=== PATIENT | male | born 1960 | race African-American/Black ===

== ENCOUNTER 2017-10-19 22:06 | Emergency (ER) | payer MEDICAID ==
[~2017-10-19] VITALS: Ht 182.9 cm; Wt 82.0 kg
[2017-10-20] MEDS ORDERED: ACETAMINOPHEN 325MG TABLET PO STA (07:25)
[2017-10-20 08:10] LABS: BASOPHILS % 0.7 % (0.0-2.0); EOSINOPHILS % 1.9 % (0.0-5.0); HEMATOCRIT. 38.4 % (42.0-52.0); LYMPHOCYTES % 44.3 % (20.0-50.0); MEAN CORPUSCULAR HEMOGLOBIN 30.8 pg (28.0-32.0); MEAN PLATELET VOLUME 9.4 fl (7.4-10.4); MONOCYTES % 14.6 % (2.0-8.0); NEUTROPHILS % 38.5 % (40.0-76.0); PLATELET 155 x1000/uL (130-400); RED BLOOD CELL COUNT 4.21 mill/uL (4.7-6.1); RED CELL DISTRIBUTION WIDTH 12.9 % (11.6-14.6)
[2017-10-20 08:52] LABS: CHLORIDE 105 mEq/L (98-107)
[2017-10-20 09:08] LABS: CLARITY URINE CLEAR (CLEAR); COLOR URINE YELLOW (YELLOW); KETONES URINE NEGATIVE (NEGATIVE); LEUKOCYTE ESTERASE URINE 1+ (NEGATIVE); NITRITE URINE NEGATIVE (NEGATIVE); OCCULT BLOOD URINE NEGATIVE (NEGATIVE); PH URINE 5.5 (4.5-8.0); PROTEIN URINE NEGATIVE (NEGATIVE); SPECIFIC GRAVITY URINE 1.016 (1.005-1.030); UROBILINOGEN URINE 0.2 E.U./dL (0.2-1.0)
[2017-10-20 09:15] LABS: CARBON DIOXIDE 24 mEq/L (21-32); ETHANOL BLOOD < 10 mg/dL
[2017-10-20 10:09] LABS: *AMPHETAMINES SCREEN URINE NEGATIVE (NEGATIVE); *BARBITURATES SCREEN URINE NEGATIVE (NEGATIVE); *BENZODIAZEPINES SCREEN URINE NEGATIVE (NEGATIVE); *COCAINE SCREEN URINE PRESUMTIVE POSITIVE (NEGATIVE); CANNABINOID URINE SCREEN PRESUMTIVE POSITIVE (NEGATIVE); METHADONE URINE SCREEN NEGATIVE (NEGATIVE); OPIATES URINE SCREEN NEGATIVE (NEGATIVE); PHENCYCLIDINE URINE SCREEN NEGATIVE (NEGATIVE)
[2017-10-20 16:02] VITALS: BP 130/70
== END 2017-10-20 17:08 ==
LOC: ER 22:26
DX: F31.9 Bipolar disorder, unspecified (principal); F17.200 Nicotine dependence, unspecified, uncomplicated; I10 Essential (primary) hypertension; M10.9 Gout, unspecified; R45.851 Suicidal ideations; F12.10 Cannabis abuse, uncomplicated; M54.5 Low back pain
CPT/HCPCS: 36415; 80053; 80305; 80307; 80329; 81001; 85025; 99285; G0482; Z7610

== ENCOUNTER 2019-02-13 09:54 | Inpatient (IN) | payer MEDICAID ==
[~2019-02-13] VITALS: Ht 172.7 cm; Wt 86.6 kg
[2019-02-13 10:40] LABS: BASOPHILS % 1.1 % (0.0-2.0); EOSINOPHILS % 0.8 % (0.0-5.0); HEMATOCRIT. 39.7 % (42.0-52.0); HEMOGLOBIN. 13.4 g/dL (14.0-18.0); LYMPHOCYTES % 33.1 % (20.0-50.0); MEAN CORPUSCULAR HEMOGLOBIN 30.5 pg (28.0-32.0); MEAN CORPUSCULAR VOLUME 90.1 fL (80.0-94.0); MEAN PLATELET VOLUME 8.7 fl (7.4-10.4); MONOCYTES % 14.5 % (2.0-8.0); NEUTROPHILS % 50.5 % (40.0-76.0); PLATELET 160 x1000/uL (130-400); RED CELL DISTRIBUTION WIDTH 14.2 % (11.6-14.6)
[2019-02-13 10:47] LABS: CHLORIDE 107 mEq/L (98-107)
[2019-02-13 10:52] LABS: INR 1.1; PROTHROMBIN TIME 11.5 sec (9.6-11.0)
[2019-02-13] MEDS ORDERED: ASPIRIN 81MG TABLET PO ONE (12:15)
[2019-02-13] MEDS ORDERED: IPRATROPIUM/ALBUTEROL 0.5-3(2.5)MG/3ML NEB INH PRN (12:30)
[2019-02-13] MEDS ORDERED: GUAIFENESIN 200MG/10ML SUGAR FREE UDC PO PRN (12:30)
[2019-02-13] MEDS ORDERED: MAGNESIUM/ALUMINUM HYDROXIDE/SIMETHICONE 30ML UDC PO PRN (12:30)
[2019-02-13] MEDS ORDERED: DOCUSATE SODIUM 100MG CAPSULE PO PRN (12:30)
[2019-02-13] MEDS ORDERED: NITROGLYCERIN 0.4MG TABLET SL SL PRN (12:30)
[2019-02-13] MEDS ORDERED: ACETAMINOPHEN 325MG TABLET PO PRN (12:30)
[2019-02-13] MEDS ORDERED: LORAZEPAM 2MG/ML CPJ IV PRN (12:30)
[2019-02-13] MEDS ORDERED: ONDANSETRON HCL 4MG/2ML INJ IV PRN (12:30)
[2019-02-13] MEDS ORDERED: NA PHOS,M-B/NA PHOS,DI-BA ENEMA 118ML PR PRN (12:30)
[2019-02-13] MEDS: AMLODIPINE 10MG TABLET PO SCH (12:53)
[2019-02-13] MEDS: ENOXAPARIN 40MG/0.4ML SYR SUBCUT SCH (12:54)
[2019-02-13] MEDS: CLONIDINE 0.1MG TABLET PO PRN (15:44)
[2019-02-13 16:45] VITALS: BP 185/110
[2019-02-13 16:58] VITALS: BP 185/110
[2019-02-13] MEDS ORDERED: HALOPERIDOL LACTATE 5MG/ML VIAL IM PRN (17:30)
[2019-02-13] MEDS ORDERED: SERT100T PO (17:31)
[2019-02-13] MEDS ORDERED: TRAZ-213 PO (17:31)
[2019-02-13] MEDS ORDERED: RISO02 PO (17:31)
[2019-02-13] MEDS ORDERED: MINOXIDIL 2.5MG TABLET PO NR ×2 (18:45→19:30)
[2019-02-13 20:00] VITALS: BP 159/91
[2019-02-13] MEDS: LISINOPRIL 20MG TABLET PO SCH (20:33)
[2019-02-13] MEDS: METOPROLOL TARTRATE 25MG TABLET PO SCH (20:34)
[2019-02-13] MEDS: FAMOTIDINE 20MG TABLET PO SCH (20:34)
[2019-02-13] MEDS ORDERED: ZOLPIDEM TARTRATE 5MG TABLET PO PRN (21:00)
[2019-02-13] MEDS: KETOROLAC 15MG/ML VIAL IV PRN (22:04)
[2019-02-14] VITALS (7 sets, daily range): BP systolic 147–189; BP diastolic 70–104
[2019-02-14] MEDS: CLONIDINE 0.1MG TABLET PO PRN (01:08)
[2019-02-14] MEDS: KETOROLAC 15MG/ML VIAL IV PRN (05:31)
[2019-02-14] MEDS: METOPROLOL TARTRATE 25MG TABLET PO SCH (09:00)
[2019-02-14] MEDS ORDERED: ASPIRIN 325MG EC TABLET PO SCH (09:00)
[2019-02-14] MEDS ORDERED: MINOXIDIL 2.5MG TABLET PO SCH (09:00)
[2019-02-14] MEDS: FAMOTIDINE 20MG TABLET PO SCH (10:58)
[2019-02-14] MEDS: AMLODIPINE 10MG TABLET PO SCH (10:58)
[2019-02-14] MEDS: LISINOPRIL 20MG TABLET PO SCH (10:59)
[2019-02-14] MEDS: ENOXAPARIN 40MG/0.4ML SYR SUBCUT SCH (12:30)
== END 2019-02-14 17:45 | disposition home or self-care (01) | DRG 203 ==
LOC: ER 09:54 → EDBEDREQ 12:23 → ENRESERV 14:20 → 8WST 17:09
PROVIDERS: ADMIT Internal Medicine; ATTEND Internal Medicine
DX: R07.89 Other chest pain (principal); F20.9 Schizophrenia, unspecified; I10 Essential (primary) hypertension; F31.9 Bipolar disorder, unspecified; F12.10 Cannabis abuse, uncomplicated; F17.210 Nicotine dependence, cigarettes, uncomplicated; Z91.14 Patient's other noncompliance with medication regimen; Z71.6 Tobacco abuse counseling; Z71.51 Drug abuse counseling and surveillance of drug abuser; Z79.899 Other long term (current) drug therapy; I69.354 Hemiplegia and hemiparesis following cerebral infarction affecting left non-dominant side
CPT/HCPCS: 36415; 70551; 71045; 80061; 82962; 83036; 83880; 84484; 93005; 93970; 96372; 99285; J1650; J1885; J2060

== ENCOUNTER 2019-02-26 07:34 | Inpatient (IN) | payer MEDICAID ==
[~2019-02-26] VITALS: Ht 185.4 cm; Wt 113.4 kg
[~2019-02-26 07:34] MED LIST: RISO02 PO; SERT100T PO; TRAZ-213 PO
[2019-02-26 09:03] LABS: BASOPHILS % 0.5 % (0.0-2.0); EOSINOPHILS % 0.1 % (0.0-5.0); HEMATOCRIT. 40.9 % (42.0-52.0); HEMOGLOBIN. 13.7 g/dL (14.0-18.0); LYMPHOCYTES % 12.7 % (20.0-50.0); MEAN CORPUSCULAR HEMOGLOBIN 30.1 pg (28.0-32.0); MEAN CORPUSCULAR VOLUME 89.8 fL (80.0-94.0); MEAN PLATELET VOLUME 9.2 fl (7.4-10.4); MONOCYTES % 11.4 % (2.0-8.0); NEUTROPHILS % 75.3 % (40.0-76.0); PLATELET 169 x1000/uL (130-400); RED BLOOD CELL COUNT 4.56 mill/uL (4.7-6.1); RED CELL DISTRIBUTION WIDTH 14.1 % (11.6-14.6)
[2019-02-26 09:09] LABS: CHLORIDE 106 mEq/L (98-107)
[2019-02-26 09:16] LABS: ETHANOL BLOOD < 10 mg/dL
[2019-02-26 09:38] LABS: CLARITY URINE TURBID (CLEAR); COLOR URINE YELLOW (YELLOW); KETONES URINE NEGATIVE (NEGATIVE); LEUKOCYTE ESTERASE URINE NEGATIVE (NEGATIVE); NITRITE URINE NEGATIVE (NEGATIVE); OCCULT BLOOD URINE NEGATIVE (NEGATIVE); PH URINE >=9.0 (4.5-8.0); PROTEIN URINE NEGATIVE (NEGATIVE); SPECIFIC GRAVITY URINE 1.016 (1.005-1.030)
[2019-02-26 09:53] LABS: *AMPHETAMINES SCREEN URINE NEGATIVE (NEGATIVE); *BARBITURATES SCREEN URINE NEGATIVE (NEGATIVE); *BENZODIAZEPINES SCREEN URINE NEGATIVE (NEGATIVE); *COCAINE SCREEN URINE PRESUMTIVE POSITIVE (NEGATIVE); METHADONE URINE SCREEN NEGATIVE (NEGATIVE); OPIATES URINE SCREEN NEGATIVE (NEGATIVE)
[2019-02-26 09:54] LABS: CANNABINOID URINE SCREEN PRESUMTIVE POSITIVE (NEGATIVE); PHENCYCLIDINE URINE SCREEN NEGATIVE (NEGATIVE)
[2019-02-26] MEDS ORDERED: OXYCODONE HCL/ACETAMINOPHEN 5/325MG TABLET PO ONE (10:15)
[2019-02-26 11:00] VITALS: BP 193/85
[2019-02-26 12:00] VITALS: BP 193/85
[2019-02-26] MEDS ORDERED: ACETAMINOPHEN 325MG TABLET PO PRN (13:15)
[2019-02-26] MEDS ORDERED: HYDROCODONE/ACETAMINOPHEN 5/325MG TABLET PO PRN (13:15)
[2019-02-26] MEDS ORDERED: ONDANSETRON HCL 4MG/2ML INJ IV PRN (13:15)
[2019-02-26] MEDS: AMLODIPINE 10MG TABLET PO SCH (13:54)
[2019-02-26] MEDS: ENOXAPARIN 40MG/0.4ML SYR SUBCUT SCH (14:00)
[2019-02-26] MEDS: CLONIDINE 0.1MG TABLET PO PRN ×2 (15:22→21:21)
[2019-02-26 15:28] LABS: T4 FREE 1.3 ng/dL (0.76-1.46)
[2019-02-26] MEDS ORDERED: AMLO5TAB4 PO (15:30)
[2019-02-26] MEDS ORDERED: LOSA25TA26 PO (15:31)
[2019-02-26 15:43] LABS: FOLIC ACID (FOLATE) SERUM 6.7 ng/mL (>5.38)
[2019-02-26] MEDS ORDERED: LORAZEPAM 2MG/ML CPJ IV NR (15:51)
[2019-02-26 16:00] VITALS: BP 188/95
[2019-02-26] MEDS: HYDROCODONE/ACETAMINOPHEN 10/325MG TABLET PO PRN ×2 (17:05→21:20)
[2019-02-26 20:00] VITALS: BP 181/95
[2019-02-26] MEDS: RISPERIDONE 0.25MG TABLET PO SCH (20:35)
[2019-02-26] MEDS: TRAZODONE HCL 100MG TABLET PO SCH (21:20)
[2019-02-27] VITALS: BP 137/77
[2019-02-27] MEDS: HYDROCODONE/ACETAMINOPHEN 10/325MG TABLET PO PRN ×4 (01:22→20:39)
[2019-02-27 04:00] VITALS: BP 133/75
[2019-02-27 06:15] LABS: HEMATOCRIT. 35.4 % (42.0-52.0); HEMOGLOBIN. 12.1 g/dL (14.0-18.0); MEAN CORPUSCULAR HEMOGLOBIN 30.6 pg (28.0-32.0); MEAN CORPUSCULAR VOLUME 89.3 fL (80.0-94.0); MEAN PLATELET VOLUME 9.3 fl (7.4-10.4); PLATELET 160 x1000/uL (130-400); RED BLOOD CELL COUNT 3.96 mill/uL (4.7-6.1); RED CELL DISTRIBUTION WIDTH 14.1 % (11.6-14.6)
[2019-02-27 06:40] LABS: CHLORIDE 105 mEq/L (98-107)
[2019-02-27 06:50] LABS: PHOSPHORUS 3.4 mg/dL (2.5-4.9)
[2019-02-27 06:51] LABS: LDL CHOLESTEROL 65 mg/dL (5-100)
[2019-02-27 06:52] LABS: HDL CHOLESTEROL 38 mg/dL (40-59)
[2019-02-27 08:00] VITALS: BP 150/83
[2019-02-27] MEDS ORDERED: LOSARTAN POTASSIUM 25 MG TABLET PO SCH (09:00)
[2019-02-27] MEDS: AMLODIPINE 10MG TABLET PO SCH (09:25)
[2019-02-27] MEDS: SERTRALINE HCL 100MG TABLET PO SCH (09:30)
[2019-02-27] MEDS: ENOXAPARIN 40MG/0.4ML SYR SUBCUT SCH (09:31)
[2019-02-27] MEDS: MAGNESIUM/ALUMINUM HYDROXIDE/SIMETHICONE 30ML UDC PO PRN (10:33)
[2019-02-27 12:00] VITALS: BP 166/84
[2019-02-27] MEDS ORDERED: PNEUMOCOCCAL 23-VAL P-SAC VAC 0.5 ML IM ONE (12:00)
[2019-02-27] MEDS: CLONIDINE 0.1MG TABLET PO PRN (13:36)
[2019-02-27] MEDS: DEXAMETHASONE 4MG/ML 1ML VIAL IV SCH ×2 (13:36→18:20)
[2019-02-27] MEDS ORDERED: MAGNESIUM CITRATE 300ML SOLUTION PO NR (14:00)
[2019-02-27] MEDS ORDERED: NA PHOS,M-B/NA PHOS,DI-BA ENEMA 118ML PR PRN (14:26)
[2019-02-27] MEDS: LACTULOSE 20G/30ML UDC PO SCH ×3 (14:29→20:40)
[2019-02-27] MEDS ORDERED: CYANOCOBALAMIN 1000MCG/ML VIAL IM SCH (15:00)
[2019-02-27] MEDS ORDERED: IPRATROPIUM/ALBUTEROL 0.5-3(2.5)MG/3ML NEB HHN PRN (15:15)
[2019-02-27] MEDS: NICOTINE 14MG PATCH TD SCH (15:26)
[2019-02-27 16:00] VITALS: BP 140/89
[2019-02-27 16:34] LABS: PLATELET ESTIMATE NORMAL
[2019-02-27] MEDS: DOCUSATE SODIUM 100MG CAPSULE PO SCH (17:00)
[2019-02-27 19:34] LABS: CLARITY URINE CLOUDY (CLEAR); COLOR URINE YELLOW (YELLOW); KETONES URINE NEGATIVE (NEGATIVE); LEUKOCYTE ESTERASE URINE NEGATIVE (NEGATIVE); NITRITE URINE NEGATIVE (NEGATIVE); OCCULT BLOOD URINE NEGATIVE (NEGATIVE); PH URINE 7.5 (4.5-8.0); PROTEIN URINE NEGATIVE (NEGATIVE); SPECIFIC GRAVITY URINE 1.014 (1.005-1.030)
[2019-02-27 20:00] VITALS: BP 167/87
[2019-02-27] MEDS: LOSARTAN POTASSIUM 50 MG TABLET PO SCH (20:39)
[2019-02-27] MEDS: AMLODIPINE 5MG TABLET PO SCH (20:39)
[2019-02-27] MEDS: TRAZODONE HCL 100MG TABLET PO SCH (20:40)
[2019-02-27] MEDS: POLYETHYLENE GLYCOL 3350 (17GM) 1 DOSE PACK PO SCH (20:40)
[2019-02-27] MEDS: RISPERIDONE 0.25MG TABLET PO SCH (20:40)
[2019-02-27 21:09] LABS: PROTHROMBIN TIME 10.7 sec (9.6-11.0)
[2019-02-28] VITALS: BP 150/80
[2019-02-28] MEDS: DEXAMETHASONE 4MG/ML 1ML VIAL IV SCH ×5 (00:03→23:09)
[2019-02-28 04:00] VITALS: BP 162/86
[2019-02-28 06:23] LABS: BASOPHILS % 0.2 % (0.0-2.0); HEMATOCRIT. 37.4 % (42.0-52.0); LYMPHOCYTES % 15.2 % (20.0-50.0); MEAN CORPUSCULAR HEMOGLOBIN 30.8 pg (28.0-32.0); MEAN CORPUSCULAR VOLUME 88.8 fL (80.0-94.0); MEAN PLATELET VOLUME 9.3 fl (7.4-10.4); MONOCYTES % 6.2 % (2.0-8.0); NEUTROPHILS % 78.4 % (40.0-76.0); PLATELET 177 x1000/uL (130-400); RED BLOOD CELL COUNT 4.21 mill/uL (4.7-6.1); RED CELL DISTRIBUTION WIDTH 13.5 % (11.6-14.6)
[2019-02-28] MEDS: HYDROCODONE/ACETAMINOPHEN 10/325MG TABLET PO PRN ×2 (06:29→16:08)
[2019-02-28 06:54] LABS: CHLORIDE 105 mEq/L (98-107)
[2019-02-28 08:00] VITALS: BP 175/90
[2019-02-28] MEDS: LOSARTAN POTASSIUM 50 MG TABLET PO SCH ×2 (08:44→20:41)
[2019-02-28] MEDS: DOCUSATE SODIUM 100MG CAPSULE PO SCH ×2 (08:44→17:44)
[2019-02-28] MEDS: SERTRALINE HCL 100MG TABLET PO SCH (08:44)
[2019-02-28] MEDS: AMLODIPINE 5MG TABLET PO SCH (08:44)
[2019-02-28] MEDS: BISACODYL 10MG SUPP PR SCH (08:45)
[2019-02-28] MEDS: NICOTINE 14MG PATCH TD SCH (08:45)
[2019-02-28 12:00] VITALS: BP 170/92
[2019-02-28] MEDS: CLONIDINE 0.1MG TABLET PO PRN (12:36)
[2019-02-28 16:00] VITALS: BP 168/83
[2019-02-28] MEDS: NIFEDIPINE XL 60MG TAB PO SCH (16:09)
[2019-02-28 20:00] VITALS: BP 171/91
[2019-02-28] MEDS: RISPERIDONE 0.25MG TABLET PO SCH (20:33)
[2019-02-28] MEDS: TRAZODONE HCL 100MG TABLET PO SCH (20:33)
[2019-02-28] MEDS: POLYETHYLENE GLYCOL 3350 (17GM) 1 DOSE PACK PO SCH (20:33)
[2019-03-01] VITALS (64 sets, daily range): BP systolic -13–210; BP diastolic -15–109
[2019-03-01] MEDS: DEXAMETHASONE 4MG/ML 1ML VIAL IV SCH ×4 (05:25→23:50)
[2019-03-01] MEDS ORDERED: THROMBIN (BOVINE) 5000 UNITS/VIAL TOP ONE (06:19)
[2019-03-01] MEDS ORDERED: LIDOCAINE HCL/EPINEPHRINE 1%-EPI 1:100,000 20 ML VIAL ONE ×2 (06:20→06:21)
[2019-03-01] MEDS ORDERED: BACITRACIN 50,000 UNITS/VIAL ONE (06:20)
[2019-03-01] MEDS ORDERED: NORMAL SALINE 0.9% 10 ML SYR ONE (06:25)
[2019-03-01] MEDS ORDERED: PROPOFOL 200MG/20ML VIAL IV ONE ×2 (06:37→07:49)
[2019-03-01] MEDS ORDERED: FENTANYL CITRATE/PF 50MCG/ML 2ML VIAL ONE (06:37)
[2019-03-01] MEDS ORDERED: MIDAZOLAM HCL 2 MG/2 ML VIAL ONE (06:37)
[2019-03-01] MEDS ORDERED: NEOSTIGMINE METHYLSULFATE 1MG/ML 10 ML VIAL ONE (06:37)
[2019-03-01] MEDS ORDERED: ROCURONIUM BROMIDE 10MG/ML VIAL 5ML IV ONE ×2 (06:37→07:34)
[2019-03-01] MEDS ORDERED: GLYCOPYRROLATE 0.2 MG/ML 2ML VIAL ONE (06:38)
[2019-03-01] MEDS ORDERED: DEXAMETHASONE 4MG/ML 1ML VIAL ONE (06:39)
[2019-03-01] MEDS ORDERED: EPHEDRINE SULFATE 50MG/ML VIAL ONE (06:39)
[2019-03-01] MEDS ORDERED: PHENYLEPHRINE HCL 10 MG/ML 1ML (IV VIAL) IV ONE (06:39)
[2019-03-01] MEDS ORDERED: CEFAZOLIN SODIUM 1000MG/VIAL ONE (06:39)
[2019-03-01] MEDS ORDERED: METOCLOPRAMIDE HCL 10MG/2ML VIAL ONE (06:39)
[2019-03-01] MEDS ORDERED: LIDOCAINE HCL/PF 1% 10 MG/ML 5ML VIAL ONE (06:39)
[2019-03-01] MEDS ORDERED: SODIUM CHLORIDE 0.9% 10ML VIAL ONE (06:39)
[2019-03-01] MEDS ORDERED: ONDANSETRON HCL 4MG/2ML INJ ONE (06:39)
[2019-03-01] MEDS ORDERED: SUCCINYLCHOLINE CHLORIDE 200MG/10ML IV ONE (06:39)
[2019-03-01] MEDS ORDERED: FENTANYL CITRATE/PF 50MCG/ML 5ML VIAL ONE (07:33)
[2019-03-01] MEDS ORDERED: HYDRALAZINE 20MG/ML VIAL ONE ×2 (07:42→08:56)
[2019-03-01] MEDS ORDERED: LABETALOL HCL 5MG/ML VIAL 20ML IV ONE (08:45)
[2019-03-01] MEDS: SERTRALINE HCL 100MG TABLET PO SCH (09:00)
[2019-03-01] MEDS: LOSARTAN POTASSIUM 50 MG TABLET PO SCH ×2 (09:00→20:12)
[2019-03-01] MEDS: BISACODYL 10MG SUPP PR SCH (09:00)
[2019-03-01] MEDS: DOCUSATE SODIUM 100MG CAPSULE PO SCH ×2 (09:00→16:30)
[2019-03-01] MEDS: NIFEDIPINE XL 60MG TAB PO SCH (09:00)
[2019-03-01] MEDS ORDERED: DIPHENHYDRAMINE INJ IV PRN (09:30)
[2019-03-01] MEDS ORDERED: ONDANSETRON INJ IV PRN (09:30)
[2019-03-01] MEDS ORDERED: NALOXONE INJ IV PRN (09:30)
[2019-03-01] MEDS: MORPHINE SULFATE 2 MG/ML CPJ (NOT FOR IM USE) IV PRN ×2 (09:31→23:56)
[2019-03-01] MEDS: DEXT 5%/LACTATED RINGERS 1,000 ML IV SCH ×2 (09:36→17:50)
[2019-03-01] MEDS: NICARDIPINE 100 MG in SODIUM CHLORIDE 0.9% 60 ML IV PRN ×2 (09:49→18:33)
[2019-03-01] MEDS ORDERED: HYDROMORPHONE PCA 10MG/50ML IV PRN (10:00)
[2019-03-01] MEDS: NICOTINE 14MG PATCH TD SCH (12:22)
[2019-03-01] MEDS: CEFAZOLIN 1000MG PREMIX 50 ML IV SCH ×2 (13:59→21:46)
[2019-03-01] MEDS ORDERED: CEFAZOLIN SODIUM 1000MG/VIAL IV SCH (14:00)
[2019-03-01] MEDS: TRAZODONE HCL 100MG TABLET PO SCH (20:12)
[2019-03-01] MEDS: RISPERIDONE 0.25MG TABLET PO SCH (20:12)
[2019-03-01] MEDS: POLYETHYLENE GLYCOL 3350 (17GM) 1 DOSE PACK PO SCH (20:12)
[2019-03-01] MEDS: CLONIDINE 0.1MG TABLET PO PRN (21:54)
[2019-03-02] VITALS (93 sets, daily range): BP systolic 89–183; BP diastolic 41–128
[2019-03-02] MEDS: DEXT 5%/LACTATED RINGERS 1,000 ML IV SCH ×2 (00:37→03:05)
[2019-03-02] MEDS: HYDROCODONE/ACETAMINOPHEN 10/325MG TABLET PO PRN ×3 (00:37→21:24)
[2019-03-02] MEDS: NICARDIPINE 100 MG in SODIUM CHLORIDE 0.9% 60 ML IV PRN ×2 (01:56→12:35)
[2019-03-02] MEDS: DEXAMETHASONE 4MG/ML 1ML VIAL IV SCH ×2 (05:16→12:30)
[2019-03-02] MEDS: CEFAZOLIN 1000MG PREMIX 50 ML IV SCH (05:16)
[2019-03-02 05:29] LABS: HEMATOCRIT. 40.6 % (42.0-52.0); HEMOGLOBIN. 14.1 g/dL (14.0-18.0); MEAN CORPUSCULAR HEMOGLOBIN 30.6 pg (28.0-32.0); MEAN CORPUSCULAR VOLUME 88.4 fL (80.0-94.0); MEAN PLATELET VOLUME 8.8 fl (7.4-10.4); PLATELET 203 x1000/uL (130-400); RED CELL DISTRIBUTION WIDTH 13.9 % (11.6-14.6)
[2019-03-02 05:37] LABS: CHLORIDE 104 mEq/L (98-107)
[2019-03-02] MEDS ORDERED: LORAZEPAM 1MG TABLET PO SCH (08:30)
[2019-03-02] MEDS: NICOTINE 14MG PATCH TD SCH (08:43)
[2019-03-02] MEDS: LOSARTAN POTASSIUM 50 MG TABLET PO SCH ×2 (08:43→20:55)
[2019-03-02] MEDS: SERTRALINE HCL 100MG TABLET PO SCH (08:43)
[2019-03-02] MEDS: DOCUSATE SODIUM 100MG CAPSULE PO SCH ×2 (08:45→18:07)
[2019-03-02] MEDS: BISACODYL 10MG SUPP PR SCH (09:00)
[2019-03-02 10:25] LABS: PLATELET ESTIMATE NORMAL
[2019-03-02] MEDS: HYDRALAZINE HCL 25MG TABLET PO SCH ×2 (12:30→21:24)
[2019-03-02] MEDS: MAGNESIUM/ALUMINUM HYDROXIDE/SIMETHICONE 30ML UDC PO PRN (15:05)
[2019-03-02] MEDS: RISPERIDONE 0.25MG TABLET PO SCH (20:55)
[2019-03-02] MEDS: TRAZODONE HCL 100MG TABLET PO SCH (20:55)
[2019-03-02] MEDS: POLYETHYLENE GLYCOL 3350 (17GM) 1 DOSE PACK PO SCH (20:55)
[2019-03-03] VITALS (88 sets, daily range): BP systolic 99–197; BP diastolic 53–151
[2019-03-03 05:53] LABS: CHLORIDE 103 mEq/L (98-107)
[2019-03-03 06:03] LABS: BASOPHILS % 0.1 % (0.0-2.0); HEMATOCRIT. 40.9 % (42.0-52.0); MEAN CORPUSCULAR HEMOGLOBIN 30.5 pg (28.0-32.0); MEAN CORPUSCULAR VOLUME 88.8 fL (80.0-94.0); MEAN PLATELET VOLUME 8.8 fl (7.4-10.4); NEUTROPHILS % 76.9 % (40.0-76.0); PLATELET 202 x1000/uL (130-400); RED BLOOD CELL COUNT 4.61 mill/uL (4.7-6.1); RED CELL DISTRIBUTION WIDTH 13.9 % (11.6-14.6)
[2019-03-03] MEDS: HYDRALAZINE HCL 25MG TABLET PO SCH ×2 (06:05→13:52)
[2019-03-03] MEDS: NICOTINE 14MG PATCH TD SCH (08:29)
[2019-03-03] MEDS: SERTRALINE HCL 100MG TABLET PO SCH (08:29)
[2019-03-03] MEDS: LOSARTAN POTASSIUM 50 MG TABLET PO SCH ×2 (08:30→20:16)
[2019-03-03] MEDS: DOCUSATE SODIUM 100MG CAPSULE PO SCH ×2 (08:30→17:01)
[2019-03-03] MEDS: HYDROCODONE/ACETAMINOPHEN 10/325MG TABLET PO PRN ×2 (08:30→13:58)
[2019-03-03] MEDS: BISACODYL 10MG SUPP PR SCH ×2 (08:31→10:48)
[2019-03-03] MEDS ORDERED: AMLODIPINE 10MG TABLET PO SCH (09:00)
[2019-03-03] MEDS: CLONIDINE 0.1MG TABLET PO PRN ×2 (15:32→21:52)
[2019-03-03] MEDS ORDERED: HYDRALAZINE 20MG/ML VIAL IV PRN (17:00)
[2019-03-03] MEDS ORDERED: HYDRALAZINE HCL 25MG TABLET PO NR (17:45)
[2019-03-03] MEDS: POLYETHYLENE GLYCOL 3350 (17GM) 1 DOSE PACK PO SCH (20:16)
[2019-03-03] MEDS: RISPERIDONE 0.25MG TABLET PO SCH (20:16)
[2019-03-03] MEDS: TRAZODONE HCL 100MG TABLET PO SCH (20:16)
[2019-03-03] MEDS: AMLODIPINE 5MG TABLET PO SCH (20:16)
[2019-03-03] MEDS: MORPHINE SULFATE 2 MG/ML CPJ (NOT FOR IM USE) IV PRN (21:35)
[2019-03-03] MEDS: HYDRALAZINE HCL 50MG TABLET PO SCH (21:35)
[2019-03-03] MEDS ORDERED: HYDRALAZINE 20MG/ML VIAL IV NR (22:45)
[2019-03-04] VITALS (7 sets, daily range): BP systolic 108–139; BP diastolic 50–67
[2019-03-04] MEDS: MORPHINE SULFATE 2 MG/ML CPJ (NOT FOR IM USE) IV PRN ×2 (03:48→13:29)
[2019-03-04] MEDS: HYDRALAZINE HCL 50MG TABLET PO SCH ×3 (05:25→21:17)
[2019-03-04 06:27] LABS: HEMATOCRIT. 39.9 % (42.0-52.0); HEMOGLOBIN. 13.8 g/dL (14.0-18.0); MEAN CORPUSCULAR HEMOGLOBIN 30.5 pg (28.0-32.0); MEAN CORPUSCULAR VOLUME 87.8 fL (80.0-94.0); MEAN PLATELET VOLUME 8.6 fl (7.4-10.4); PLATELET 200 x1000/uL (130-400); RED BLOOD CELL COUNT 4.54 mill/uL (4.7-6.1); RED CELL DISTRIBUTION WIDTH 14.3 % (11.6-14.6)
[2019-03-04 06:31] LABS: CHLORIDE 104 mEq/L (98-107)
[2019-03-04 07:56] LABS: PLATELET ESTIMATE NORMAL
[2019-03-04] MEDS: LOSARTAN POTASSIUM 50 MG TABLET PO SCH ×2 (09:20→21:17)
[2019-03-04] MEDS: AMLODIPINE 10MG TABLET PO SCH (09:21)
[2019-03-04] MEDS: SERTRALINE HCL 100MG TABLET PO SCH (09:21)
[2019-03-04] MEDS: NICOTINE 14MG PATCH TD SCH (09:23)
[2019-03-04] MEDS: BISACODYL 10MG SUPP PR SCH (09:31)
[2019-03-04] MEDS: DOCUSATE SODIUM 100MG CAPSULE PO SCH ×2 (09:32→16:55)
[2019-03-04] MEDS ORDERED: ERGOCALCIFEROL 50000UNITS CAPSULE PO SCH (14:00)
[2019-03-04] MEDS: HYDROCODONE/ACETAMINOPHEN 5/325MG TABLET PO PRN (18:58)
[2019-03-04] MEDS: POLYETHYLENE GLYCOL 3350 (17GM) 1 DOSE PACK PO SCH (21:00)
[2019-03-04] MEDS: AMLODIPINE 5MG TABLET PO SCH (21:17)
[2019-03-04] MEDS: RISPERIDONE 0.25MG TABLET PO SCH (21:17)
[2019-03-04] MEDS: TRAZODONE HCL 100MG TABLET PO SCH (21:17)
[2019-03-05] VITALS: BP 142/82
[2019-03-05] MEDS: HYDROCODONE/ACETAMINOPHEN 5/325MG TABLET PO PRN ×2 (02:29→08:48)
[2019-03-05 04:00] VITALS: BP 144/73
[2019-03-05] MEDS: HYDRALAZINE HCL 50MG TABLET PO SCH ×3 (05:35→19:52)
[2019-03-05] MEDS: MORPHINE SULFATE 2 MG/ML CPJ (NOT FOR IM USE) IV PRN ×4 (05:36→23:52)
[2019-03-05 06:51] LABS: HEMATOCRIT. 40.3 % (42.0-52.0); HEMOGLOBIN. 13.6 g/dL (14.0-18.0); MEAN CORPUSCULAR HEMOGLOBIN 29.9 pg (28.0-32.0); MEAN CORPUSCULAR VOLUME 88.8 fL (80.0-94.0); MEAN PLATELET VOLUME 8.6 fl (7.4-10.4); PLATELET 162 x1000/uL (130-400); RED BLOOD CELL COUNT 4.54 mill/uL (4.7-6.1); RED CELL DISTRIBUTION WIDTH 13.7 % (11.6-14.6)
[2019-03-05 06:55] LABS: CHLORIDE 105 mEq/L (98-107)
[2019-03-05 08:00] VITALS: BP 147/73
[2019-03-05] MEDS: AMLODIPINE 10MG TABLET PO SCH (08:40)
[2019-03-05] MEDS: DOCUSATE SODIUM 100MG CAPSULE PO SCH ×3 (08:40→17:00)
[2019-03-05] MEDS: LOSARTAN POTASSIUM 50 MG TABLET PO SCH ×2 (08:40→19:53)
[2019-03-05] MEDS: SERTRALINE HCL 100MG TABLET PO SCH (08:40)
[2019-03-05] MEDS: NICOTINE 14MG PATCH TD SCH (08:42)
[2019-03-05] MEDS: BISACODYL 10MG SUPP PR SCH (08:42)
[2019-03-05 12:00] VITALS: BP 168/93
[2019-03-05 16:00] VITALS: BP 127/65
[2019-03-05 16:10] LABS: PLATELET ESTIMATE NORMAL
[2019-03-05] MEDS: RISPERIDONE 0.25MG TABLET PO SCH (19:52)
[2019-03-05] MEDS: AMLODIPINE 5MG TABLET PO SCH (19:52)
[2019-03-05] MEDS: POLYETHYLENE GLYCOL 3350 (17GM) 1 DOSE PACK PO SCH ×2 (19:53→20:13)
[2019-03-05] MEDS: TRAZODONE HCL 100MG TABLET PO SCH (19:53)
[2019-03-05 20:00] VITALS: BP 136/64
[2019-03-06] VITALS (7 sets, daily range): BP systolic 129–158; BP diastolic 65–88
[2019-03-06] MEDS: MORPHINE SULFATE 2 MG/ML CPJ (NOT FOR IM USE) IV PRN (03:51)
[2019-03-06] MEDS: HYDRALAZINE HCL 50MG TABLET PO SCH ×3 (05:54→20:28)
[2019-03-06 06:36] LABS: HEMATOCRIT. 40.7 % (42.0-52.0); MEAN CORPUSCULAR HEMOGLOBIN 30.1 pg (28.0-32.0); MEAN CORPUSCULAR VOLUME 87.7 fL (80.0-94.0); MEAN PLATELET VOLUME 8.3 fl (7.4-10.4); PLATELET 182 x1000/uL (130-400); RED BLOOD CELL COUNT 4.64 mill/uL (4.7-6.1); RED CELL DISTRIBUTION WIDTH 13.9 % (11.6-14.6)
[2019-03-06 07:31] LABS: CHLORIDE 105 mEq/L (98-107)
[2019-03-06 07:36] LABS: PLATELET ESTIMATE NORMAL
[2019-03-06] MEDS: HYDROCODONE/ACETAMINOPHEN 5/325MG TABLET PO PRN ×3 (08:09→20:17)
[2019-03-06] MEDS: NICOTINE 14MG PATCH TD SCH (08:10)
[2019-03-06] MEDS: AMLODIPINE 10MG TABLET PO SCH (08:10)
[2019-03-06] MEDS: SERTRALINE HCL 100MG TABLET PO SCH (08:10)
[2019-03-06] MEDS: DOCUSATE SODIUM 100MG CAPSULE PO SCH ×2 (08:10→17:23)
[2019-03-06] MEDS: BISACODYL 10MG SUPP PR SCH (08:45)
[2019-03-06] MEDS: LOSARTAN POTASSIUM 50 MG TABLET PO SCH ×2 (13:58→20:28)
[2019-03-06] MEDS: RISPERIDONE 0.25MG TABLET PO SCH (20:28)
[2019-03-06] MEDS: TRAZODONE HCL 100MG TABLET PO SCH (20:28)
[2019-03-06] MEDS: AMLODIPINE 5MG TABLET PO SCH (20:28)
[2019-03-06] MEDS: POLYETHYLENE GLYCOL 3350 (17GM) 1 DOSE PACK PO SCH (20:29)
[2019-03-07] VITALS: BP 138/75
[2019-03-07] MEDS: HYDROCODONE/ACETAMINOPHEN 5/325MG TABLET PO PRN ×4 (00:33→22:36)
[2019-03-07] MEDS: DIPHENHYDRAMINE 25MG CAPSULE PO PRN (01:02)
[2019-03-07 04:00] VITALS: BP 129/67
[2019-03-07] MEDS: HYDRALAZINE HCL 50MG TABLET PO SCH ×4 (05:15→20:25)
[2019-03-07 06:24] LABS: HEMATOCRIT. 41.5 % (42.0-52.0); HEMOGLOBIN. 14.1 g/dL (14.0-18.0); MEAN CORPUSCULAR HEMOGLOBIN 30.1 pg (28.0-32.0); MEAN CORPUSCULAR VOLUME 88.6 fL (80.0-94.0); MEAN PLATELET VOLUME 8.7 fl (7.4-10.4); PLATELET 185 x1000/uL (130-400); RED BLOOD CELL COUNT 4.68 mill/uL (4.7-6.1); RED CELL DISTRIBUTION WIDTH 14.2 % (11.6-14.6)
[2019-03-07 06:31] LABS: CHLORIDE 105 mEq/L (98-107)
[2019-03-07 08:00] VITALS: BP 140/73
[2019-03-07] MEDS: SERTRALINE HCL 100MG TABLET PO SCH (08:55)
[2019-03-07] MEDS: LOSARTAN POTASSIUM 50 MG TABLET PO SCH ×2 (08:55→20:25)
[2019-03-07] MEDS: AMLODIPINE 10MG TABLET PO SCH (08:56)
[2019-03-07] MEDS: DOCUSATE SODIUM 100MG CAPSULE PO SCH ×2 (08:56→18:41)
[2019-03-07] MEDS: NICOTINE 14MG PATCH TD SCH ×2 (09:00→12:23)
[2019-03-07] MEDS: BISACODYL 10MG SUPP PR SCH (09:00)
[2019-03-07 09:35] LABS: PLATELET ESTIMATE NORMAL
[2019-03-07 12:00] VITALS: BP 95/56
[2019-03-07 16:00] VITALS: BP 134/69
[2019-03-07 20:00] VITALS: BP 134/61
[2019-03-07] MEDS: RISPERIDONE 0.25MG TABLET PO SCH (20:24)
[2019-03-07] MEDS: TRAZODONE HCL 100MG TABLET PO SCH (20:24)
[2019-03-07] MEDS: AMLODIPINE 5MG TABLET PO SCH (20:25)
[2019-03-07] MEDS: POLYETHYLENE GLYCOL 3350 (17GM) 1 DOSE PACK PO SCH (20:33)
[2019-03-08] VITALS: BP 130/78
[2019-03-08] MEDS: HYDROCODONE/ACETAMINOPHEN 5/325MG TABLET PO PRN (03:06)
[2019-03-08] MEDS: DIPHENHYDRAMINE 25MG CAPSULE PO PRN (03:06)
[2019-03-08 04:00] VITALS: BP 129/72
[2019-03-08] MEDS: HYDRALAZINE HCL 50MG TABLET PO SCH ×2 (05:23→13:35)
[2019-03-08 08:00] VITALS: BP 120/71
[2019-03-08] MEDS: BISACODYL 10MG SUPP PR SCH (09:00)
[2019-03-08] MEDS: NICOTINE 14MG PATCH TD SCH (09:00)
[2019-03-08] MEDS: LOSARTAN POTASSIUM 50 MG TABLET PO SCH (09:33)
[2019-03-08] MEDS: AMLODIPINE 10MG TABLET PO SCH (09:33)
[2019-03-08] MEDS: SERTRALINE HCL 100MG TABLET PO SCH (09:33)
[2019-03-08] MEDS: DOCUSATE SODIUM 100MG CAPSULE PO SCH (09:33)
[2019-03-08 12:00] VITALS: BP 138/69
[2019-03-08 16:23] VITALS: BP 140/72
[2019-03-08 17:02] VITALS: BP 114/70
[2019-03-11 04:12] LABS: 25-HYDROXY VITAMIN D3 7.9 ng/mL (.)
[2019-03-12] MEDS ORDERED: CYANOCOBALAMIN 1000MCG/ML VIAL IM SCH (09:00)
== END 2019-03-08 18:13 | disposition home health service (06) | DRG 321 ==
LOC: ER 07:34 → 5WST 10:17 → ENRESERV 10:40 → MICUSO 03-01 09:08 → 7WST 03-03 23:20
PROVIDERS: ADMIT Family Medicine Adult Medicine; ATTEND Family Medicine Adult Medicine
PROC: 0RG10A0 Fusion of Cervical Vertebral Joint with Interbody Fusion Device, Anterior Approach, Anterior Column, Open Approach (ICD-10-PCS; principal; 2019-03-01)
PROC: 0RT30ZZ Resection of Cervical Vertebral Disc, Open Approach (ICD-10-PCS; 2019-03-01)
PROC: 4A00X4Z Measurement of Central Nervous Electrical Activity, External Approach (ICD-10-PCS; 2019-03-01)
PROC: 4A11X4G Monitoring of Peripheral Nervous Electrical Activity, Intraoperative, External Approach (ICD-10-PCS; 2019-03-01)
PROC: 01N10ZZ Release Cervical Nerve, Open Approach (ICD-10-PCS; 2019-03-01)
DX: M48.02 Spinal stenosis, cervical region (principal); G82.50 Quadriplegia, unspecified; M47.12 Other spondylosis with myelopathy, cervical region; F20.9 Schizophrenia, unspecified; M48.04 Spinal stenosis, thoracic region; G95.29 Other cord compression; K59.2 Neurogenic bowel, not elsewhere classified; N31.9 Neuromuscular dysfunction of bladder, unspecified; S14.109A Unspecified injury at unspecified level of cervical spinal cord, initial encounter; D64.9 Anemia, unspecified; F12.10 Cannabis abuse, uncomplicated; F17.210 Nicotine dependence, cigarettes, uncomplicated; F14.10 Cocaine abuse, uncomplicated; F43.10 Post-traumatic stress disorder, unspecified; G40.909 Epilepsy, unspecified, not intractable, without status epilepticus; F32.9 Major depressive disorder, single episode, unspecified; I16.0 Hypertensive urgency; E87.6 Hypokalemia; M48.061 Spinal stenosis, lumbar region without neurogenic claudication; I10 Essential (primary) hypertension; K59.00 Constipation, unspecified; M06.9 Rheumatoid arthritis, unspecified; M10.9 Gout, unspecified; F41.9 Anxiety disorder, unspecified; M06.30 Rheumatoid nodule, unspecified site; I69.354 Hemiplegia and hemiparesis following cerebral infarction affecting left non-dominant side; Z82.49 Family history of ischemic heart disease and other diseases of the circulatory system; Z71.6 Tobacco abuse counseling; Z91.19 Patient's noncompliance with other medical treatment and regimen
CPT/HCPCS: 36415; 70544; 70553; 71045; 72040; 72141; 72146; 72148; 76000; 80048; 80061; 80305; 80320; 82306; 82607; 82746; 83036; 83735; 83880; 84100; 84439; 84443; 84481; 88304; 88311; 90732; 92610; 93005; 93306; 93880; 93970; 95925; 95926; 95928; 95929; 97110; 97116; 97162; 97164; 97166; 97168; 97530; 97535; 99285; A6261; C1713; J0330; J0360; J0690; J1100; J1200; J1650; J2060; J2250; J2270; J2370; J2405; J2704; J2710; J2765; J3010; J3420; J3490; J7050; J7121; L0172; Q0163; G0480

== ENCOUNTER 2019-03-17 01:07 | Inpatient (IN) | payer MEDICAID, OTHER ==
[~2019-03-17] VITALS: Ht 185.4 cm; Wt 99.8 kg
[2019-03-17] VITALS (80 sets, daily range): BP systolic 80–175; BP diastolic 53–114
[~2019-03-17 01:07] MED LIST changes: +AMLO5TAB4 PO; +LOSA25TA26 PO
[2019-03-17] MEDS ORDERED: LORAZEPAM 2MG/ML CPJ ONE (01:22)
[2019-03-17] MEDS ORDERED: ATROPINE SULFATE 1MG/10ML SYR ONE (01:28)
[2019-03-17] MEDS ORDERED: ETOMIDATE 2MG/ML 10ML VIAL IV ONE ×2 (01:28→01:30)
[2019-03-17] MEDS ORDERED: EPINEPHRINE 0.1MG/ML (1:10,000) 10ML SYR ONE (01:28)
[2019-03-17] MEDS ORDERED: SUCCINYLCHOLINE CHLORIDE 200MG/10ML IV ONE ×2 (01:28→01:30)
[2019-03-17] MEDS ORDERED: LORAZEPAM 2MG/ML CPJ IV ONE (01:30)
[2019-03-17] MEDS ORDERED: LEVETIRACETAM 250 MG in SODIUM CHLORIDE 0.9% 100 ML IV SCH (01:30)
[2019-03-17] MEDS ORDERED: LABETALOL 5MG/ML SYR 20 MG/4 ML SYRINGE IV ONE (01:30)
[2019-03-17] MEDS ORDERED: LEVETIRACETAM 500MG PREMIX 100 ML IV ONE (01:30)
[2019-03-17 01:48] LABS: BASOPHILS % 0.7 % (0.0-2.0); EOSINOPHILS % 0.4 % (0.0-5.0); HEMATOCRIT. 39.9 % (42.0-52.0); HEMOGLOBIN. 13.5 g/dL (14.0-18.0); LYMPHOCYTES % 13.9 % (20.0-50.0); MEAN CORPUSCULAR HEMOGLOBIN 30.3 pg (28.0-32.0); MEAN CORPUSCULAR VOLUME 89.3 fL (80.0-94.0); MEAN PLATELET VOLUME 8.4 fl (7.4-10.4); PLATELET 224 x1000/uL (130-400); RED BLOOD CELL COUNT 4.46 mill/uL (4.7-6.1); RED CELL DISTRIBUTION WIDTH 13.8 % (11.6-14.6)
[2019-03-17 01:54] LABS: CHLORIDE 104 mEq/L (98-107)
[2019-03-17 01:58] LABS: ETHANOL BLOOD < 10 mg/dL
[2019-03-17] MEDS ORDERED: PROPOFOL 10MG/ML 100ML 100 ML IV SCH (02:00)
[2019-03-17 02:12] LABS: BG BASE EXCESS 0.1 mmol/L (-2.0-2.0); BG CARBOXYHEMOGLOBIN 2.3 % (0.5-1.5); BG DEOXYHEMOGLOBIN 0.6 % (0.0-5.0); BG FRACTION INSPIRED OXYGEN 100; BG METHEMOGLOBIN 0.2 % (0.0-1.5); BG OXYGEN SATURATION 99.4 % (92.0-98.5); BG OXYHEMOGLOBIN 96.9 % (94.0-97.0); BG PCO2 53.2 mmHg (35.0-45.0); BG PH 7.324 (7.350-7.450); BG PO2 257.7 mmHg (75.0-100.0); BG SAMPLE SITE RIGHT RADIAL; BG TIDAL VOLUME(mL) 550 mL; BG TOTAL HEMOGLOBIN 13.6 g/dL (12.0-18.0); BG VENT MODE VENT - A/C; BG VENT RATE 16 set
[2019-03-17] MEDS ORDERED: LORAZEPAM 2MG/ML CPJ IV PRN (05:30)
[2019-03-17] MEDS: SODIUM CHLORIDE 0.9% 1,000 ML IV SCH (05:53)
[2019-03-17] MEDS: PROPOFOL 10MG/ML 100ML 100 ML IV PRN ×7 (06:03→23:18)
[2019-03-17 07:56] LABS: BG BASE EXCESS 5.6 mmol/L (-2.0-2.0); BG CARBOXYHEMOGLOBIN 0.6 % (0.5-1.5); BG DEOXYHEMOGLOBIN 0.5 % (0.0-5.0); BG HCO3 ACT 28.8 mmol/L (22.0-26.0); BG METHEMOGLOBIN 0.3 % (0.0-1.5); BG OXYGEN SATURATION 99.5 % (92.0-98.5); BG OXYHEMOGLOBIN 98.6 % (94.0-97.0); BG PCO2 37.3 mmHg (35.0-45.0); BG PH 7.506 (7.350-7.450); BG PO2 262.7 mmHg (75.0-100.0); BG SAMPLE SITE RIGHT BRACHIAL; BG TIDAL VOLUME(mL) 550 mL; BG TOTAL HEMOGLOBIN 13.2 g/dL (12.0-18.0); BG VENT MODE VENT - A/C
[2019-03-17 10:03] LABS: CREATINE KINASE MB FRACTION 3.5 ng/mL (0.5-3.6)
[2019-03-17] MEDS ORDERED: DEXTROSE 50% WATER 50ML SYRINGE IV PRN (10:15)
[2019-03-17] MEDS ORDERED: ONDANSETRON HCL 4MG/2ML INJ IV PRN (10:15)
[2019-03-17] MEDS ORDERED: ACETAMINOPHEN 650MG SUPP PR PRN ×2 (10:15→11:00)
[2019-03-17 11:27] LABS: INR 1.1; PROTHROMBIN TIME 11.6 sec (9.6-11.0)
[2019-03-17] MEDS: BLOOD SUGAR DIAGNOSTIC STRIP TEST SCH ×3 (11:30→21:22)
[2019-03-17] MEDS: LEVETIRACETAM 500 MG in SODIUM CHLORIDE 0.9% 100 ML IV SCH ×2 (11:57→20:24)
[2019-03-17] MEDS: INSULIN LISPRO 100 UNITS/ML SUBCUT SCH ×3 (12:00→21:00)
[2019-03-17 12:43] LABS: TOTAL IRON BINDING CAPACITY 243 ug/dL (250-450)
[2019-03-17] MEDS ORDERED: MIDAZOLAM HCL 5 MG/5 ML VIAL ONE (13:04)
[2019-03-17] MEDS ORDERED: FENTANYL CITRATE/PF 50MCG/ML 2ML VIAL ONE (13:05)
[2019-03-17] MEDS: ALBUTEROL (0.083%) 2.5MG/3ML NEB HHN SCH ×2 (13:25→19:45)
[2019-03-17] MEDS ORDERED: SIMETHICONE 40 MG/0.6 ML 30ML ONE (13:25)
[2019-03-17] MEDS ORDERED: BACTERIOSTATIC SODIUM CHLORIDE 0.9% 30ML VIAL IJ ONE (13:25)
[2019-03-17 14:34] LABS: BG BASE EXCESS 2.6 mmol/L (-2.0-2.0); BG CARBOXYHEMOGLOBIN 0.4 % (0.5-1.5); BG DEOXYHEMOGLOBIN 1.5 % (0.0-5.0); BG FRACTION INSPIRED OXYGEN 50; BG METHEMOGLOBIN 0.2 % (0.0-1.5); BG OXYGEN SATURATION 98.5 % (92.0-98.5); BG OXYHEMOGLOBIN 97.9 % (94.0-97.0); BG PH 7.477 (7.350-7.450); BG PO2 122.1 mmHg (75.0-100.0); BG SAMPLE SITE LEFT BRACHIAL; BG TIDAL VOLUME(mL) 550 mL; BG TOTAL HEMOGLOBIN 12.7 g/dL (12.0-18.0); BG VENT MODE VENT - A/C; BG VENT RATE 16 set
[2019-03-17] MEDS ORDERED: FENTANYL CITRATE/PF 50MCG/ML 2ML VIAL IV ONE (14:36)
[2019-03-17] MEDS ORDERED: MIDAZOLAM HCL 2 MG/2 ML VIAL IV PRN (14:39)
[2019-03-17 15:21] LABS: HEMATOCRIT 36.6 % (42.0-52.0); HEMOGLOBIN 12.5 g/dL (14.0-18.0)
[2019-03-17 15:35] LABS: CREATINE KINASE MB FRACTION 1.7 ng/mL (0.5-3.6)
[2019-03-17] MEDS: PANTOPRAZOLE SODIUM 40 MG/VIAL IV SCH ×2 (16:33→20:24)
[2019-03-17 16:36] LABS: CLARITY URINE CLEAR (CLEAR); COLOR URINE YELLOW (YELLOW); KETONES URINE NEGATIVE (NEGATIVE); LEUKOCYTE ESTERASE URINE NEGATIVE (NEGATIVE); NITRITE URINE NEGATIVE (NEGATIVE); OCCULT BLOOD URINE NEGATIVE (NEGATIVE); PH URINE 6.5 (4.5-8.0); PROTEIN URINE NEGATIVE (NEGATIVE); SPECIFIC GRAVITY URINE 1.025 (1.005-1.030)
[2019-03-17 16:48] LABS: *AMPHETAMINES SCREEN URINE NEGATIVE (NEGATIVE); *BARBITURATES SCREEN URINE NEGATIVE (NEGATIVE); *BENZODIAZEPINES SCREEN URINE PRESUMTIVE POSITIVE (NEGATIVE); *COCAINE SCREEN URINE PRESUMTIVE POSITIVE (NEGATIVE)
[2019-03-17 16:49] LABS: CANNABINOID URINE SCREEN PRESUMTIVE POSITIVE (NEGATIVE); METHADONE URINE SCREEN NEGATIVE (NEGATIVE); OPIATES URINE SCREEN NEGATIVE (NEGATIVE); PHENCYCLIDINE URINE SCREEN NEGATIVE (NEGATIVE)
[2019-03-17 19:11] LABS: HEMATOCRIT 38.1 % (42.0-52.0); HEMOGLOBIN 12.8 g/dL (14.0-18.0)
[2019-03-17 23:04] LABS: CREATINE KINASE 64 IU/L (39-308); CREATINE KINASE MB FRACTION < 1.0 ng/mL (0.5-3.6)
[2019-03-18] VITALS (89 sets, daily range): BP systolic 90–182; BP diastolic 54–114
[2019-03-18 00:44] LABS: HEMATOCRIT 35.1 % (42.0-52.0); HEMOGLOBIN 11.7 g/dL (14.0-18.0)
[2019-03-18] MEDS: SODIUM CHLORIDE 0.9% 1,000 ML IV SCH (01:30)
[2019-03-18] MEDS: PROPOFOL 10MG/ML 100ML 100 ML IV PRN ×2 (02:11→05:00)
[2019-03-18] MEDS: ALBUTEROL (0.083%) 2.5MG/3ML NEB HHN SCH ×4 (02:21→21:00)
[2019-03-18 05:25] LABS: BASOPHILS % 0.5 % (0.0-2.0); EOSINOPHILS % 0.1 % (0.0-5.0); HEMATOCRIT. 38.6 % (42.0-52.0); HEMOGLOBIN. 13.1 g/dL (14.0-18.0); LYMPHOCYTES % 13.7 % (20.0-50.0); MEAN CORPUSCULAR HEMOGLOBIN 30.4 pg (28.0-32.0); MEAN CORPUSCULAR VOLUME 89.4 fL (80.0-94.0); MEAN PLATELET VOLUME 8.6 fl (7.4-10.4); MONOCYTES % 7.3 % (2.0-8.0); NEUTROPHILS % 78.4 % (40.0-76.0); PLATELET 175 x1000/uL (130-400); RED BLOOD CELL COUNT 4.32 mill/uL (4.7-6.1); RED CELL DISTRIBUTION WIDTH 13.9 % (11.6-14.6)
[2019-03-18 05:44] LABS: CHLORIDE 105 mEq/L (98-107)
[2019-03-18] MEDS: INSULIN LISPRO 100 UNITS/ML SUBCUT SCH ×4 (07:00→21:00)
[2019-03-18] MEDS ORDERED: PROPOFOL 10MG/ML 100ML 100 ML IV PRN (07:15)
[2019-03-18] MEDS: BLOOD SUGAR DIAGNOSTIC STRIP TEST SCH ×4 (07:27→21:43)
[2019-03-18] MEDS: PANTOPRAZOLE SODIUM 40 MG/VIAL IV SCH (09:12)
[2019-03-18] MEDS: LEVETIRACETAM 500 MG in SODIUM CHLORIDE 0.9% 100 ML IV SCH ×2 (09:13→21:44)
[2019-03-18] MEDS ORDERED: METRONIDAZOLE 500 MG PREMIX 100 ML IV SCH (10:15)
[2019-03-18] MEDS: CEFEPIME 1,000 MG in DEXTROSE 5% WATER 50 ML IV SCH ×2 (11:44→23:03)
[2019-03-18] MEDS: METRONIDAZOLE 500 MG PREMIX 100 ML IV SCH ×2 (11:44→20:24)
[2019-03-18 12:01] LABS: BG BASE EXCESS 3.2 mmol/L (-2.0-2.0); BG CARBOXYHEMOGLOBIN 0.3 % (0.5-1.5); BG DEOXYHEMOGLOBIN 1.3 % (0.0-5.0); BG FRACTION INSPIRED OXYGEN 50; BG HCO3 ACT 27.1 mmol/L (22.0-26.0); BG METHEMOGLOBIN 0.3 % (0.0-1.5); BG OXYGEN SATURATION 98.7 % (92.0-98.5); BG OXYHEMOGLOBIN 98.1 % (94.0-97.0); BG PCO2 38.9 mmHg (35.0-45.0); BG PH 7.461 (7.350-7.450); BG PO2 145.9 mmHg (75.0-100.0); BG PRESSURE SUPPORT 8; BG SAMPLE SITE RIGHT RADIAL; BG TOTAL HEMOGLOBIN 12.6 g/dL (12.0-18.0); BG VENT MODE VENT - CPAP
[2019-03-18 13:00] LABS: HEMATOCRIT 33.6 % (42.0-52.0); HEMOGLOBIN 11.5 g/dL (14.0-18.0)
[2019-03-18] MEDS: CLONIDINE 0.1MG TABLET PO PRN (16:25)
[2019-03-18 19:23] LABS: HEMATOCRIT 32.9 % (42.0-52.0); HEMOGLOBIN 11.5 g/dL (14.0-18.0)
[2019-03-18] MEDS: FAMOTIDINE 20MG TABLET NG SCH (21:43)
[2019-03-19] VITALS (38 sets, daily range): BP systolic 136–182; BP diastolic 78–100
[2019-03-19] MEDS: ALBUTEROL (0.083%) 2.5MG/3ML NEB HHN SCH ×2 (00:48→09:40)
[2019-03-19] MEDS: METRONIDAZOLE 500 MG PREMIX 100 ML IV SCH ×3 (03:15→21:13)
[2019-03-19 05:50] LABS: CHLORIDE 107 mEq/L (98-107)
[2019-03-19] MEDS: BLOOD SUGAR DIAGNOSTIC STRIP TEST SCH (05:50)
[2019-03-19 05:51] LABS: BASOPHILS % 0.5 % (0.0-2.0); EOSINOPHILS % 0.9 % (0.0-5.0); HEMATOCRIT. 31.7 % (42.0-52.0); HEMOGLOBIN. 10.8 g/dL (14.0-18.0); LYMPHOCYTES % 21.7 % (20.0-50.0); MEAN CORPUSCULAR VOLUME 88.4 fL (80.0-94.0); MEAN PLATELET VOLUME 8.6 fl (7.4-10.4); MONOCYTES % 9.4 % (2.0-8.0); NEUTROPHILS % 67.5 % (40.0-76.0); PLATELET 151 x1000/uL (130-400); RED BLOOD CELL COUNT 3.59 mill/uL (4.7-6.1); RED CELL DISTRIBUTION WIDTH 13.9 % (11.6-14.6)
[2019-03-19] MEDS: INSULIN LISPRO 100 UNITS/ML SUBCUT SCH (06:20)
[2019-03-19] MEDS ORDERED: LORAZEPAM 2MG/ML CPJ IV PRN (07:45)
[2019-03-19] MEDS: LEVETIRACETAM 500 MG in SODIUM CHLORIDE 0.9% 100 ML IV SCH ×2 (08:52→23:53)
[2019-03-19] MEDS: FAMOTIDINE 20MG TABLET NG SCH (08:52)
[2019-03-19] MEDS: CEFEPIME 1,000 MG in DEXTROSE 5% WATER 50 ML IV SCH ×2 (10:48→23:02)
[2019-03-19] MEDS: AMLODIPINE 5MG TABLET PO SCH ×2 (13:06→21:44)
[2019-03-19] MEDS: MORPHINE SULFATE 2 MG/ML CPJ (NOT FOR IM USE) IV PRN ×2 (18:25→23:03)
[2019-03-19] MEDS: OMEPRAZOLE 20MG CAPSULE EXTENDED RELEASE PO SCH (18:25)
[2019-03-19] MEDS: CLONIDINE 0.1MG TABLET PO PRN (21:44)
[2019-03-20] VITALS: BP 160/80
[2019-03-20 04:00] VITALS: BP 162/90
[2019-03-20] MEDS: METRONIDAZOLE 500 MG PREMIX 100 ML IV SCH ×2 (05:02→11:44)
[2019-03-20] MEDS: MORPHINE SULFATE 2 MG/ML CPJ (NOT FOR IM USE) IV PRN ×2 (05:05→10:01)
[2019-03-20 06:45] LABS: CHLORIDE 107 mEq/L (98-107)
[2019-03-20 06:56] LABS: BASOPHILS % 0.5 % (0.0-2.0); EOSINOPHILS % 1.3 % (0.0-5.0); HEMATOCRIT. 32.7 % (42.0-52.0); MEAN CORPUSCULAR HEMOGLOBIN 29.8 pg (28.0-32.0); MEAN CORPUSCULAR VOLUME 88.5 fL (80.0-94.0); MONOCYTES % 11.5 % (2.0-8.0); NEUTROPHILS % 60.7 % (40.0-76.0); PLATELET 149 x1000/uL (130-400); RED BLOOD CELL COUNT 3.69 mill/uL (4.7-6.1); RED CELL DISTRIBUTION WIDTH 13.7 % (11.6-14.6)
[2019-03-20 08:00] VITALS: BP 154/77
[2019-03-20] MEDS: LEVETIRACETAM 500 MG in SODIUM CHLORIDE 0.9% 100 ML IV SCH (09:58)
[2019-03-20] MEDS: AMLODIPINE 5MG TABLET PO SCH (09:58)
[2019-03-20] MEDS: OMEPRAZOLE 20MG CAPSULE EXTENDED RELEASE PO SCH ×2 (09:58→17:18)
[2019-03-20] MEDS: CEFEPIME 1,000 MG in DEXTROSE 5% WATER 50 ML IV SCH (10:50)
[2019-03-20 12:00] VITALS: BP 168/87
[2019-03-20 15:33] VITALS: BP 168/87
[2019-03-20 16:00] VITALS: BP 175/79
[2019-03-20] MEDS ORDERED: LEVETIRACETAM 500MG TABLET PO SCH (21:00)
[2019-03-27 17:12] LABS: 7-AMINOCLONAZEPAM CONFIRM Negative (.); ALPRAZOLAM CONFIRM Negative (.); CHLORDIAZEPOXIDE CONFIRM Negative (.); CLONAZEPAM CONFIRM Negative (.); DESMETHYLCHLORDIAZEPOXIDE Negative (.); DIAZEPAM CONFIRM Negative (.); FLURAZEPAM CONFIRM Negative (.); LORAZEPAM CONFIRM Negative (.); MIDAZOLAM CONFIRM 19 ng/mL (.); OXAZEPAM CONFIRM Negative (.); TEMAZEPAM CONFIRM Negative (.); TRIAZOLAM CONFIRM Negative (.)
[2019-04-15 19:12] LABS: BARBITURATE SCREEN Negative ug/mL (Cutoff:0.1); BENZODIAZEPINE SCREEN ++POSITIVE++ ng/mL (Cutoff:20); OPIATES SCREEN Negative ng/mL (Cutoff:5); PHENCYCLIDINE SCREEN Negative ng/mL (Cutoff:8)
[2019-04-28] MEDS ORDERED: KEPPSOL PO (17:18)
[2019-05-01] MEDS ORDERED: CHLO25TA2 PO (18:52)
[2019-05-01] MEDS ORDERED: KEPP500 MT (18:52)
[2019-05-01] MEDS ORDERED: THIA100T72 PO (18:52)
[2019-05-01] MEDS ORDERED: LOSA100T3 PO (18:52)
[2019-05-01] MEDS ORDERED: FOLI-43 PO (18:52)
== END 2019-03-20 17:50 | disposition home or self-care (01) | DRG 720 ==
LOC: ER 01:07 → MICUSO 02:04 → EDBEDREQTM 02:06 → EDBEDREQ 02:06 → ENRESERV 03:07 → 7WST 03-19 17:46
PROVIDERS: ADMIT Internal Medicine Nephrology; ATTEND Internal Medicine Nephrology
PROC: 0DC68ZZ Extirpation of Matter from Stomach, Via Natural or Artificial Opening Endoscopic (ICD-10-PCS; principal; 2019-03-17)
PROC: 0BH17EZ Insertion of Endotracheal Airway into Trachea, Via Natural or Artificial Opening (ICD-10-PCS; 2019-03-17)
PROC: 5A1945Z Respiratory Ventilation, 24-96 Consecutive Hours (ICD-10-PCS; 2019-03-17)
PROC: 0DB68ZX Excision of Stomach, Via Natural or Artificial Opening Endoscopic, Diagnostic (ICD-10-PCS; 2019-03-17)
PROC: 02HV33Z Insertion of Infusion Device into Superior Vena Cava, Percutaneous Approach (ICD-10-PCS; 2019-03-18)
PROC: B548ZZA Ultrasonography of Superior Vena Cava, Guidance (ICD-10-PCS; 2019-03-18)
DX: A41.9 Sepsis, unspecified organism (principal); J96.00 Acute respiratory failure, unspecified whether with hypoxia or hypercapnia; I46.9 Cardiac arrest, cause unspecified; J69.0 Pneumonitis due to inhalation of food and vomit; G82.50 Quadriplegia, unspecified; G93.41 Metabolic encephalopathy; E44.0 Moderate protein-calorie malnutrition; K25.4 Chronic or unspecified gastric ulcer with hemorrhage; T18.2XXA Foreign body in stomach, initial encounter; E11.9 Type 2 diabetes mellitus without complications; I10 Essential (primary) hypertension; K44.9 Diaphragmatic hernia without obstruction or gangrene; G95.20 Unspecified cord compression; M48.02 Spinal stenosis, cervical region; F14.10 Cocaine abuse, uncomplicated; F17.210 Nicotine dependence, cigarettes, uncomplicated; G40.901 Epilepsy, unspecified, not intractable, with status epilepticus; M47.9 Spondylosis, unspecified; M48.04 Spinal stenosis, thoracic region; J90 Pleural effusion, not elsewhere classified; K29.71 Gastritis, unspecified, with bleeding; F12.10 Cannabis abuse, uncomplicated; F32.9 Major depressive disorder, single episode, unspecified; X58.XXXA Exposure to other specified factors, initial encounter; Y93.89 Activity, other specified; Z79.82 Long term (current) use of aspirin; Z86.73 Personal history of transient ischemic attack (TIA), and cerebral infarction without residual deficits; Y92.89 Other specified places as the place of occurrence of the external cause; Y99.8 Other external cause status; Z68.29 Body mass index [BMI] 29.0-29.9, adult
CPT/HCPCS: 36415; 36569; 36600; 71045; 76604; 76937; 80048; 80305; 80307; 80320; 82375; 82542; 82550; 82553; 82728; 82805; 82962; 83036; 83540; 83550; 84478; 84484; 85014; 85018; 86803; 87070; 88300; 88305; 88312; 88313; 92610; 93005; 93970; 94002; 94003; 94640; 95816; 96365; 96375; 97116; 97162; 99291; C1725; C9113; J0330; J0461; J0692; J1953; J2060; J2250; J2270; J2704; J3010; J3490; J7030; J7050; J7060; J7611; A4315; G0480

== ENCOUNTER 2019-08-05 11:43 | Inpatient (IN) | payer MEDICAID, OTHER ==
[2019-08-05] VITALS (8 sets, daily range): BP systolic 106–172; BP diastolic 68–98
[~2019-08-05] VITALS: Ht 185.4 cm; Wt 103.4 kg
[~2019-08-05 11:43] MED LIST changes: +CHLO25TA2 PO; +FOLI-43 PO; +KEPP500 MT; +LOSA100T3 PO; -LOSA25TA26 PO; +THIA100T72 PO
[2019-08-05] MEDS ORDERED: LORAZEPAM 2MG/ML CPJ ONE (11:55)
[2019-08-05] MEDS ORDERED: SODIUM CHLORIDE 0.9% 1,000 ML IV ONE (11:58)
[2019-08-05] MEDS ORDERED: LORAZEPAM 2MG/ML CPJ IV ONE (12:00)
[2019-08-05] MEDS ORDERED: HYDRALAZINE 20MG/ML VIAL IV ONE (12:15)
[2019-08-05 12:53] LABS: CLARITY URINE CLEAR (CLEAR); COLOR URINE YELLOW (YELLOW); KETONES URINE NEGATIVE (NEGATIVE); LEUKOCYTE ESTERASE URINE NEGATIVE (NEGATIVE); NITRITE URINE NEGATIVE (NEGATIVE); OCCULT BLOOD URINE TRACE (NEGATIVE); PH URINE 6.5 (4.5-8.0); PROTEIN URINE 1+ (NEGATIVE); SPECIFIC GRAVITY URINE 1.011 (1.005-1.030); UROBILINOGEN URINE 0.2 E.U./dL (0.2-1.0)
[2019-08-05 12:56] LABS: BASOPHILS % 0.6 % (0.0-2.0); HEMATOCRIT. 43.8 % (42.0-52.0); HEMOGLOBIN. 14.6 g/dL (14.0-18.0); LYMPHOCYTES % 21.7 % (20.0-50.0); MEAN CORPUSCULAR HEMOGLOBIN 30.8 pg (28.0-32.0); MEAN CORPUSCULAR VOLUME 92.6 fL (80.0-94.0); MEAN PLATELET VOLUME 9.1 fl (7.4-10.4); MONOCYTES % 8.7 % (2.0-8.0); PLATELET 164 x1000/uL (130-400); RED BLOOD CELL COUNT 4.73 mill/uL (4.7-6.1); RED CELL DISTRIBUTION WIDTH 14.9 % (11.6-14.6)
[2019-08-05 12:58] LABS: CHLORIDE 110 mEq/L (98-107)
[2019-08-05 12:59] LABS: PROTHROMBIN TIME 10.6 sec (9.6-11.0)
[2019-08-05] MEDS ORDERED: PROPOFOL 10MG/ML 100ML 100 ML IV ONE ×2 (13:00→18:00)
[2019-08-05] MEDS ORDERED: PHENYTOIN SODIUM 1,000 MG in SODIUM CHLORIDE 0.9% 100 ML IV ONE (13:00)
[2019-08-05] MEDS ORDERED: SUCCINYLCHOLINE CHLORIDE 200MG/10ML IV ONE ×2 (13:00→14:00)
[2019-08-05] MEDS ORDERED: ETOMIDATE 2MG/ML 10ML VIAL IV ONE ×2 (13:00→14:00)
[2019-08-05 13:02] LABS: ETHANOL BLOOD < 10 mg/dL
[2019-08-05 13:26] LABS: CARBAMAZEPINE < 0.5 ug/mL (4-12); PHENOBARBITAL < 2.1 ug/mL (15.0-40.0); VALPROIC ACID < 3.0 ug/mL (50-100)
[2019-08-05 13:33] LABS: *BENZODIAZEPINES SCREEN URINE PRESUMTIVE POSITIVE (NEGATIVE)
[2019-08-05] MEDS ORDERED: CEFTRIAXONE 1 G PREMIX 50 ML IV ONE (13:45)
[2019-08-05 13:57] LABS: *AMPHETAMINES SCREEN URINE NEGATIVE (NEGATIVE); *BARBITURATES SCREEN URINE NEGATIVE (NEGATIVE); *COCAINE SCREEN URINE PRESUMTIVE POSITIVE (NEGATIVE); CANNABINOID URINE SCREEN PRESUMTIVE POSITIVE (NEGATIVE); METHADONE URINE SCREEN NEGATIVE (NEGATIVE); OPIATES URINE SCREEN NEGATIVE (NEGATIVE); PHENCYCLIDINE URINE SCREEN NEGATIVE (NEGATIVE)
[2019-08-05] MEDS ORDERED: LEVETIRACETAM 500 MG in SODIUM CHLORIDE 0.9% 100 ML IV SCH (14:30)
[2019-08-05] MEDS ORDERED: ONDANSETRON HCL 4MG/2ML INJ IV PRN (14:30)
[2019-08-05 15:13] LABS: BG BASE EXCESS 0.2 mmol/L (-2.0-2.0); BG CARBOXYHEMOGLOBIN 0.7 % (0.5-1.5); BG DEOXYHEMOGLOBIN 0.3 % (0.0-5.0); BG FRACTION INSPIRED OXYGEN 100; BG HCO3 ACT 25.5 mmol/L (22.0-26.0); BG METHEMOGLOBIN 0.3 % (0.0-1.5); BG OXYGEN SATURATION 99.7 % (92.0-98.5); BG OXYHEMOGLOBIN 98.7 % (94.0-97.0); BG PCO2 43.8 mmHg (35.0-45.0); BG PH 7.383 (7.350-7.450); BG PO2 272.7 mmHg (75.0-100.0); BG SAMPLE SITE RIGHT RADIAL; BG TIDAL VOLUME(mL) 650 mL; BG TOTAL HEMOGLOBIN 13.4 g/dL (12.0-18.0); BG VENT MODE VENT - A/C; BG VENT RATE 16 set
[2019-08-05] MEDS ORDERED: LEVETIRACETAM 500MG PREMIX 100 ML IV SCH (15:30)
[2019-08-05] MEDS ORDERED: IPRATROPIUM/ALBUTEROL 0.5-3(2.5)MG/3ML NEB HHN PRN (16:30)
[2019-08-05] MEDS ORDERED: IPRATROPIUM/ALBUTEROL 0.5-3(2.5)MG/3ML NEB HHN SCH (18:00)
[2019-08-05] MEDS ORDERED: FAMOTIDINE 20MG/2ML VIAL IV SCH (18:30)
[2019-08-05] MEDS ORDERED: PIPERACILLIN/TAZOBACTAM 3.375 G in DEXT 5% WATER 100 ML IV NR (18:30)
[2019-08-05] MEDS: PROPOFOL 10MG/ML 100ML 100 ML IV PRN (21:44)
[2019-08-06] VITALS (43 sets, daily range): BP systolic 113–185; BP diastolic 64–143
[2019-08-06] MEDS ORDERED: PIPERACILLIN/TAZOBACTAM 3.375 G in DEXT 5% WATER 100 ML IV SCH (00:30)
[2019-08-06] MEDS: ACETAMINOPHEN 325MG TABLET PO PRN ×2 (00:41→21:36)
[2019-08-06] MEDS: DEXT 5%/0.9% NACL KCL 20MEQ/L 1,000 ML IV SCH ×3 (00:50→16:31)
[2019-08-06] MEDS: HYDRALAZINE 20MG/ML VIAL IV PRN ×2 (01:58→16:35)
[2019-08-06] MEDS: PROPOFOL 10MG/ML 100ML 100 ML IV PRN ×6 (02:55→20:22)
[2019-08-06] MEDS: PIPERACILLIN/TAZOBACTAM 3.375 G in DEXT 5% WATER 100 ML IV SCH ×3 (05:21→17:24)
[2019-08-06 05:29] LABS: BASOPHILS % 0.4 % (0.0-2.0); EOSINOPHILS % 0.2 % (0.0-5.0); HEMATOCRIT. 38.2 % (42.0-52.0); HEMOGLOBIN. 12.9 g/dL (14.0-18.0); LYMPHOCYTES % 21.4 % (20.0-50.0); MEAN CORPUSCULAR HEMOGLOBIN 30.7 pg (28.0-32.0); MEAN CORPUSCULAR VOLUME 90.9 fL (80.0-94.0); MEAN PLATELET VOLUME 9.1 fl (7.4-10.4); MONOCYTES % 10.2 % (2.0-8.0); NEUTROPHILS % 67.8 % (40.0-76.0); PLATELET 136 x1000/uL (130-400); RED CELL DISTRIBUTION WIDTH 14.5 % (11.6-14.6)
[2019-08-06 05:33] LABS: CHLORIDE 109 mEq/L (98-107)
[2019-08-06 07:55] LABS: BG BASE EXCESS 2.6 mmol/L (-2.0-2.0); BG CARBOXYHEMOGLOBIN 0.3 % (0.5-1.5); BG DEOXYHEMOGLOBIN 0.7 % (0.0-5.0); BG FRACTION INSPIRED OXYGEN 60; BG HCO3 ACT 26.5 mmol/L (22.0-26.0); BG METHEMOGLOBIN 0.2 % (0.0-1.5); BG OXYGEN SATURATION 99.3 % (92.0-98.5); BG OXYHEMOGLOBIN 98.8 % (94.0-97.0); BG PCO2 38.2 mmHg (35.0-45.0); BG PH 7.459 (7.350-7.450); BG PO2 200.1 mmHg (75.0-100.0); BG SAMPLE SITE RIGHT BRACHIAL; BG TIDAL VOLUME(mL) 600 mL; BG TOTAL HEMOGLOBIN 12.4 g/dL (12.0-18.0); BG VENT MODE VENT - A/C; BG VENT RATE 16 set
[2019-08-06] MEDS: PANTOPRAZOLE SODIUM 40 MG/VIAL IV SCH ×2 (08:16→21:35)
[2019-08-06] MEDS: LEVETIRACETAM 500 MG in SODIUM CHLORIDE 0.9% 100 ML IV SCH ×2 (08:16→21:35)
[2019-08-06] MEDS: IPRATROPIUM/ALBUTEROL 0.5-3(2.5)MG/3ML NEB HHN SCH (08:20)
[2019-08-06] MEDS: LORAZEPAM 2MG/ML CPJ IV PRN (14:00)
[2019-08-06] MEDS: FENTANYL CITRATE/PF 500 MCG in SODIUM CHLORIDE 0.9% 40 ML IV PRN ×2 (15:14→21:37)
[2019-08-06] MEDS: FOLIC ACID 1MG TABLET PO SCH (17:00)
[2019-08-06] MEDS: THIAMINE HCL 100MG TABLET PO SCH (17:00)
[2019-08-06] MEDS: MULTIVITAMINS,THER W-MINERALS TABLET PO SCH (17:00)
[2019-08-06] MEDS: LABETALOL 5MG/ML SYR 20 MG/4 ML SYRINGE IV PRN (18:35)
[2019-08-07] VITALS (46 sets, daily range): BP systolic 109–203; BP diastolic 51–118
[2019-08-07] MEDS: PROPOFOL 10MG/ML 100ML 100 ML IV PRN ×2 (00:01→05:12)
[2019-08-07] MEDS: PIPERACILLIN/TAZOBACTAM 3.375 G in DEXT 5% WATER 100 ML IV SCH ×5 (00:34→23:13)
[2019-08-07] MEDS: DEXT 5%/0.9% NACL KCL 20MEQ/L 1,000 ML IV SCH ×3 (00:34→16:54)
[2019-08-07] MEDS: ENALAPRIL 1.25MG/ML VIAL 1ML IV SCH ×2 (00:38→06:43)
[2019-08-07 05:49] LABS: CHLORIDE 113 mEq/L (98-107)
[2019-08-07] MEDS: IPRATROPIUM/ALBUTEROL 0.5-3(2.5)MG/3ML NEB HHN SCH ×5 (08:00→23:53)
[2019-08-07 08:05] LABS: BG BASE EXCESS 1.1 mmol/L (-2.0-2.0); BG CARBOXYHEMOGLOBIN 0.5 % (0.5-1.5); BG DEOXYHEMOGLOBIN 1.3 % (0.0-5.0); BG FRACTION INSPIRED OXYGEN 40; BG HCO3 ACT 26.3 mmol/L (22.0-26.0); BG METHEMOGLOBIN 0.3 % (0.0-1.5); BG OXYGEN SATURATION 98.7 % (92.0-98.5); BG OXYHEMOGLOBIN 97.9 % (94.0-97.0); BG PCO2 44.1 mmHg (35.0-45.0); BG PH 7.394 (7.350-7.450); BG PO2 137.8 mmHg (75.0-100.0); BG SAMPLE SITE RIGHT RADIAL; BG TIDAL VOLUME(mL) 600 mL; BG TOTAL HEMOGLOBIN 12.5 g/dL (12.0-18.0); BG VENT MODE VENT - A/C; BG VENT RATE 12 set
[2019-08-07] MEDS: PANTOPRAZOLE SODIUM 40 MG/VIAL IV SCH ×2 (08:27→21:02)
[2019-08-07] MEDS: FENTANYL CITRATE/PF 500 MCG in SODIUM CHLORIDE 0.9% 40 ML IV PRN ×2 (08:30→19:44)
[2019-08-07] MEDS: LEVETIRACETAM 500 MG in SODIUM CHLORIDE 0.9% 100 ML IV SCH ×2 (08:45→21:55)
[2019-08-07 09:05] LABS: BASOPHILS % 0.5 % (0.0-2.0); EOSINOPHILS % 0.4 % (0.0-5.0); HEMOGLOBIN. 12.7 g/dL (14.0-18.0); LYMPHOCYTES % 14.9 % (20.0-50.0); MEAN CORPUSCULAR HEMOGLOBIN 31.2 pg (28.0-32.0); MEAN CORPUSCULAR VOLUME 91.2 fL (80.0-94.0); MEAN PLATELET VOLUME 8.8 fl (7.4-10.4); MONOCYTES % 9.3 % (2.0-8.0); NEUTROPHILS % 74.9 % (40.0-76.0); PLATELET 124 x1000/uL (130-400); RED BLOOD CELL COUNT 4.06 mill/uL (4.7-6.1); RED CELL DISTRIBUTION WIDTH 14.7 % (11.6-14.6)
[2019-08-07] MEDS: MULTIVITAMINS,THER W-MINERALS TABLET PO SCH (11:26)
[2019-08-07] MEDS: THIAMINE HCL 100MG TABLET PO SCH (11:26)
[2019-08-07] MEDS: FOLIC ACID 1MG TABLET PO SCH (11:26)
[2019-08-07] MEDS: LOSARTAN POTASSIUM 100 MG TABLET PO SCH (11:27)
[2019-08-07 11:32] LABS: BG CARBOXYHEMOGLOBIN 0.6 % (0.5-1.5); BG DEOXYHEMOGLOBIN 2.6 % (0.0-5.0); BG FRACTION INSPIRED OXYGEN 30; BG HCO3 ACT 25.8 mmol/L (22.0-26.0); BG METHEMOGLOBIN 0.3 % (0.0-1.5); BG OXYGEN SATURATION 97.4 % (92.0-98.5); BG OXYHEMOGLOBIN 96.5 % (94.0-97.0); BG PCO2 41.9 mmHg (35.0-45.0); BG PH 7.407 (7.350-7.450); BG PO2 95.4 mmHg (75.0-100.0); BG PRESSURE SUPPORT 8; BG SAMPLE SITE RIGHT RADIAL; BG VENT MODE VENT - CPAP
[2019-08-07] MEDS: HYDRALAZINE 20MG/ML VIAL IV PRN ×2 (14:49→23:13)
[2019-08-07] MEDS ORDERED: CLONIDINE 0.1MG TABLET PO NR ×2 (16:00→17:27)
[2019-08-07] MEDS ORDERED: LORAZEPAM 2MG/ML CPJ IV NR (18:00)
[2019-08-07] MEDS: HYDRALAZINE HCL 100MG TABLET PO SCH (21:03)
[2019-08-07] MEDS: AMLODIPINE 10MG TABLET PO SCH (22:27)
[2019-08-08] VITALS (47 sets, daily range): BP systolic 129–190; BP diastolic 58–105
[2019-08-08] MEDS: FENTANYL CITRATE/PF 500 MCG in SODIUM CHLORIDE 0.9% 40 ML IV PRN ×2 (01:19→06:50)
[2019-08-08] MEDS: LORAZEPAM 2MG/ML CPJ IV PRN (02:18)
[2019-08-08] MEDS: LABETALOL 5MG/ML SYR 20 MG/4 ML SYRINGE IV PRN (02:41)
[2019-08-08] MEDS: IPRATROPIUM/ALBUTEROL 0.5-3(2.5)MG/3ML NEB HHN SCH ×5 (03:56→20:36)
[2019-08-08] MEDS: PIPERACILLIN/TAZOBACTAM 3.375 G in DEXT 5% WATER 100 ML IV SCH ×3 (05:12→17:03)
[2019-08-08] MEDS: ACETAMINOPHEN 325MG TABLET PO PRN (05:13)
[2019-08-08] MEDS: HYDRALAZINE HCL 100MG TABLET PO SCH ×3 (05:13→22:02)
[2019-08-08 05:28] LABS: HEMATOCRIT. 36.7 % (42.0-52.0); HEMOGLOBIN. 12.4 g/dL (14.0-18.0); MEAN CORPUSCULAR HEMOGLOBIN 30.9 pg (28.0-32.0); MEAN CORPUSCULAR VOLUME 91.4 fL (80.0-94.0); MEAN PLATELET VOLUME 9.1 fl (7.4-10.4); PLATELET 150 x1000/uL (130-400); RED BLOOD CELL COUNT 4.02 mill/uL (4.7-6.1); RED CELL DISTRIBUTION WIDTH 14.3 % (11.6-14.6)
[2019-08-08 05:36] LABS: CHLORIDE 106 mEq/L (98-107)
[2019-08-08 06:46] LABS: PLATELET ESTIMATE NORMAL
[2019-08-08] MEDS: MULTIVITAMINS,THER W-MINERALS TABLET PO SCH (08:25)
[2019-08-08] MEDS: LOSARTAN POTASSIUM 100 MG TABLET PO SCH (08:25)
[2019-08-08] MEDS: AMLODIPINE 10MG TABLET PO SCH (08:25)
[2019-08-08] MEDS: LEVETIRACETAM 500 MG in SODIUM CHLORIDE 0.9% 100 ML IV SCH ×2 (08:25→21:53)
[2019-08-08] MEDS: THIAMINE HCL 100MG TABLET PO SCH (08:25)
[2019-08-08] MEDS: FOLIC ACID 1MG TABLET PO SCH (08:25)
[2019-08-08] MEDS: PANTOPRAZOLE SODIUM 40 MG/VIAL IV SCH ×2 (08:25→21:46)
[2019-08-08 13:02] LABS: BG BASE EXCESS 3.2 mmol/L (-2.0-2.0); BG CARBOXYHEMOGLOBIN 0.9 % (0.5-1.5); BG DEOXYHEMOGLOBIN 1.9 % (0.0-5.0); BG FRACTION INSPIRED OXYGEN 30; BG METHEMOGLOBIN 0.1 % (0.0-1.5); BG OXYGEN SATURATION 98.1 % (92.0-98.5); BG OXYHEMOGLOBIN 97.1 % (94.0-97.0); BG PCO2 43.6 mmHg (35.0-45.0); BG PH 7.426 (7.350-7.450); BG PO2 109.1 mmHg (75.0-100.0); BG PRESSURE SUPPORT 8; BG SAMPLE SITE RIGHT RADIAL; BG TOTAL HEMOGLOBIN 13.4 g/dL (12.0-18.0); BG VENT MODE VENT - CPAP
[2019-08-09] VITALS (35 sets, daily range): BP systolic 112–161; BP diastolic 59–97
[2019-08-09] MEDS: PIPERACILLIN/TAZOBACTAM 3.375 G in DEXT 5% WATER 100 ML IV SCH ×4 (00:11→18:07)
[2019-08-09] MEDS: IPRATROPIUM/ALBUTEROL 0.5-3(2.5)MG/3ML NEB HHN SCH ×6 (00:39→21:06)
[2019-08-09 05:44] LABS: BASOPHILS % 0.6 % (0.0-2.0); EOSINOPHILS % 0.6 % (0.0-5.0); HEMATOCRIT. 35.3 % (42.0-52.0); LYMPHOCYTES % 16.4 % (20.0-50.0); MEAN CORPUSCULAR HEMOGLOBIN 30.7 pg (28.0-32.0); MEAN CORPUSCULAR VOLUME 90.4 fL (80.0-94.0); MONOCYTES % 13.9 % (2.0-8.0); NEUTROPHILS % 68.5 % (40.0-76.0); PLATELET 156 x1000/uL (130-400); RED BLOOD CELL COUNT 3.91 mill/uL (4.7-6.1); RED CELL DISTRIBUTION WIDTH 13.9 % (11.6-14.6)
[2019-08-09 05:50] LABS: CHLORIDE 103 mEq/L (98-107)
[2019-08-09] MEDS: HYDRALAZINE HCL 100MG TABLET PO SCH ×3 (06:22→21:05)
[2019-08-09] MEDS: LEVETIRACETAM 500 MG in SODIUM CHLORIDE 0.9% 100 ML IV SCH ×2 (09:06→22:08)
[2019-08-09] MEDS: MULTIVITAMINS,THER W-MINERALS TABLET PO SCH (09:07)
[2019-08-09] MEDS: FOLIC ACID 1MG TABLET PO SCH (09:07)
[2019-08-09] MEDS: PANTOPRAZOLE SODIUM 40 MG/VIAL IV SCH ×2 (09:07→21:15)
[2019-08-09] MEDS: THIAMINE HCL 100MG TABLET PO SCH (09:07)
[2019-08-09] MEDS: AMLODIPINE 10MG TABLET PO SCH (09:07)
[2019-08-09] MEDS: LOSARTAN POTASSIUM 100 MG TABLET PO SCH (09:07)
[2019-08-09] MEDS ORDERED: MORPHINE SULFATE 2 MG/ML CPJ (NOT FOR IM USE) IV PRN (10:30)
[2019-08-09] MEDS: ACETAMINOPHEN 325MG TABLET PO PRN ×2 (18:59→19:01)
[2019-08-10] VITALS (7 sets, daily range): BP systolic 122–156; BP diastolic 62–76
[2019-08-10] MEDS: PIPERACILLIN/TAZOBACTAM 3.375 G in DEXT 5% WATER 100 ML IV SCH ×3 (00:05→12:49)
[2019-08-10] MEDS: IPRATROPIUM/ALBUTEROL 0.5-3(2.5)MG/3ML NEB HHN SCH ×5 (01:00→17:00)
[2019-08-10] MEDS: HYDRALAZINE HCL 100MG TABLET PO SCH ×2 (05:31→12:50)
[2019-08-10] MEDS: THIAMINE HCL 100MG TABLET PO SCH (08:47)
[2019-08-10] MEDS: PANTOPRAZOLE SODIUM 40 MG/VIAL IV SCH (08:47)
[2019-08-10] MEDS: FOLIC ACID 1MG TABLET PO SCH (08:47)
[2019-08-10] MEDS: LOSARTAN POTASSIUM 100 MG TABLET PO SCH (08:47)
[2019-08-10] MEDS: AMLODIPINE 10MG TABLET PO SCH (08:48)
[2019-08-10] MEDS: MULTIVITAMINS,THER W-MINERALS TABLET PO SCH (08:49)
[2019-08-10] MEDS: ACETAMINOPHEN 325MG TABLET PO PRN (08:55)
[2019-08-10] MEDS: LEVETIRACETAM 500 MG in SODIUM CHLORIDE 0.9% 100 ML IV SCH (08:57)
[2019-08-10] MEDS ORDERED: AMLO5TAB4 PO (13:51)
[2019-08-10] MEDS ORDERED: KEPP500 MT (13:51)
[2019-08-10] MEDS ORDERED: LOSA100T3 PO (13:51)
[2019-08-10] MEDS ORDERED: HYDR100T26 MT (13:52)
[2019-08-10] MEDS ORDERED: HYDR-4001 MT (18:28)
== END 2019-08-10 20:49 | disposition home or self-care (01) | DRG 53 ==
LOC: ER 11:43 → CVICU 13:15 → ENRESERV 21:19 → 6WST 08-09 16:48
PROVIDERS: ADMIT Internal Medicine; ATTEND Internal Medicine
PROC: 5A1945Z Respiratory Ventilation, 24-96 Consecutive Hours (ICD-10-PCS; principal; 2019-08-05)
PROC: 0BH17EZ Insertion of Endotracheal Airway into Trachea, Via Natural or Artificial Opening (ICD-10-PCS; 2019-08-05)
DX: G40.901 Epilepsy, unspecified, not intractable, with status epilepticus (principal); J96.00 Acute respiratory failure, unspecified whether with hypoxia or hypercapnia; J69.0 Pneumonitis due to inhalation of food and vomit; M48.02 Spinal stenosis, cervical region; E87.8 Other disorders of electrolyte and fluid balance, not elsewhere classified; I69.354 Hemiplegia and hemiparesis following cerebral infarction affecting left non-dominant side; G95.9 Disease of spinal cord, unspecified; I11.9 Hypertensive heart disease without heart failure; I16.0 Hypertensive urgency; E66.9 Obesity, unspecified; Z68.30 Body mass index [BMI] 30.0-30.9, adult; F12.10 Cannabis abuse, uncomplicated; F14.10 Cocaine abuse, uncomplicated; F17.210 Nicotine dependence, cigarettes, uncomplicated; K29.70 Gastritis, unspecified, without bleeding; K44.9 Diaphragmatic hernia without obstruction or gangrene; M48.04 Spinal stenosis, thoracic region; M48.061 Spinal stenosis, lumbar region without neurogenic claudication; Z91.14 Patient's other noncompliance with medication regimen; Z98.1 Arthrodesis status
CPT/HCPCS: 31500; 36415; 36600; 51702; 71045; 80048; 80156; 80165; 80184; 80185; 80305; 80320; 81003; 82375; 82805; 82962; 83605; 83880; 84478; 84484; 87070; 92610; 93005; 93970; 94002; 94003; 94640; 96365; 96366; 96367; 96375; 97162; 99291; C9113; J0330; J0360; J0696; J1165; J1953; J2060; J2270; J2543; J2704; J3010; J3490; J7030; J7040; J7050; J7060; J7620; G0480

== ENCOUNTER 2020-04-13 07:55 | Inpatient (IN) | payer MEDICAID ==
[~2020-04-13] VITALS: Ht 185.4 cm; Wt 113.9 kg
[~2020-04-13 07:55] MED LIST changes: +HYDR-4001 MT; +HYDR100T26 MT; -TRAZ-213 PO; +TRAZ-252 PO
[2020-04-13] MEDS ORDERED: SODIUM CHLORIDE 0.9% 1,000 ML IV ONE (08:31)
[2020-04-13] MEDS ORDERED: LEVETIRACETAM 500MG PREMIX 100 ML IV ONE (08:45)
[2020-04-13 09:22] LABS: BASOPHILS % 0.2 % (0.0-2.0); HEMATOCRIT. 38.7 % (42.0-52.0); HEMOGLOBIN. 13.6 g/dL (14.0-18.0); LYMPHOCYTES % 11.6 % (20.0-50.0); MEAN CORPUSCULAR HEMOGLOBIN 32.4 pg (28.0-32.0); MEAN CORPUSCULAR VOLUME 92.4 fL (80.0-94.0); MEAN PLATELET VOLUME 9.3 fl (7.4-10.4); NEUTROPHILS % 79.2 % (40.0-76.0); PLATELET 149 x1000/uL (130-400); RED BLOOD CELL COUNT 4.19 mill/uL (4.7-6.1); RED CELL DISTRIBUTION WIDTH 13.5 % (11.6-14.6)
[2020-04-13 09:29] LABS: CHLORIDE 103 mEq/L (98-107)
[2020-04-13 09:34] LABS: ETHANOL BLOOD < 10 mg/dL
[2020-04-13 09:41] LABS: CARBAMAZEPINE < 0.5 ug/mL (4-12); PHENOBARBITAL < 2.1 ug/mL (15.0-40.0)
[2020-04-13] MEDS ORDERED: LORAZEPAM 2MG/ML CPJ IV ONE (10:15)
[2020-04-13] MEDS ORDERED: ONDANSETRON HCL 4MG/2ML INJ IV PRN (12:00)
[2020-04-13] MEDS: SODIUM CHLORIDE 0.9% 1,000 ML IV SCH ×2 (14:24→19:53)
[2020-04-13 18:56] LABS: CLARITY URINE CLEAR (CLEAR); COLOR URINE YELLOW (YELLOW); KETONES URINE NEGATIVE (NEGATIVE); LEUKOCYTE ESTERASE URINE NEGATIVE (NEGATIVE); NITRITE URINE NEGATIVE (NEGATIVE); OCCULT BLOOD URINE NEGATIVE (NEGATIVE); PROTEIN URINE NEGATIVE (NEGATIVE); SPECIFIC GRAVITY URINE 1.013 (1.005-1.030)
[2020-04-13 19:06] LABS: *AMPHETAMINES SCREEN URINE NEGATIVE (NEGATIVE); *BARBITURATES SCREEN URINE NEGATIVE (NEGATIVE); *BENZODIAZEPINES SCREEN URINE NEGATIVE (NEGATIVE); *COCAINE SCREEN URINE PRESUMTIVE POSITIVE (NEGATIVE); METHADONE URINE SCREEN NEGATIVE (NEGATIVE)
[2020-04-13 19:07] LABS: CANNABINOID URINE SCREEN PRESUMTIVE POSITIVE (NEGATIVE); OPIATES URINE SCREEN NEGATIVE (NEGATIVE); PHENCYCLIDINE URINE SCREEN NEGATIVE (NEGATIVE)
[2020-04-13] MEDS ORDERED: LEVETIRACETAM 500MG PREMIX 100 ML IV SCH (21:00)
[2020-04-14] VITALS (7 sets, daily range): BP systolic 155–197; BP diastolic 85–94
[2020-04-14] MEDS: HYDRALAZINE 20MG/ML VIAL IV PRN ×2 (03:54→16:13)
[2020-04-14] MEDS: SODIUM CHLORIDE 0.9% 1,000 ML IV SCH ×2 (03:57→17:40)
[2020-04-14 06:10] LABS: CHLORIDE 103 mEq/L (98-107)
[2020-04-14 06:27] LABS: BASOPHILS % 0.6 % (0.0-2.0); EOSINOPHILS % 0.6 % (0.0-5.0); HEMATOCRIT. 40.3 % (42.0-52.0); HEMOGLOBIN. 14.1 g/dL (14.0-18.0); LYMPHOCYTES % 23.5 % (20.0-50.0); MEAN CORPUSCULAR HEMOGLOBIN 31.9 pg (28.0-32.0); MEAN CORPUSCULAR VOLUME 91.5 fL (80.0-94.0); MEAN PLATELET VOLUME 9.1 fl (7.4-10.4); MONOCYTES % 12.6 % (2.0-8.0); NEUTROPHILS % 62.7 % (40.0-76.0); PLATELET 133 x1000/uL (130-400); RED BLOOD CELL COUNT 4.41 mill/uL (4.7-6.1); RED CELL DISTRIBUTION WIDTH 13.4 % (11.6-14.6)
[2020-04-14] MEDS: FOLIC ACID 1MG TABLET PO SCH (08:43)
[2020-04-14] MEDS: MULTIVITAMINS,THER W-MINERALS TABLET PO SCH (08:43)
[2020-04-14] MEDS: THIAMINE HCL 100MG TABLET PO SCH (08:43)
[2020-04-14] MEDS: LEVETIRACETAM 500MG PREMIX 100 ML IV SCH ×2 (08:43→20:20)
[2020-04-14] MEDS ORDERED: POTASSIUM CHLORIDE 20MEQ TABLET SR PO SCH (11:15)
[2020-04-14] MEDS: ACETAMINOPHEN 325MG TABLET PO PRN (12:47)
[2020-04-14] MEDS: AMLODIPINE 5MG TABLET PO SCH (12:48)
[2020-04-14] MEDS ORDERED: ENOXAPARIN 40MG/0.4ML SYR SUBCUT SCH (20:00)
[2020-04-14] MEDS: ENOXAPARIN 30MG/0.3ML SYR SUBCUT SCH (20:21)
[2020-04-14] MEDS ORDERED: ATORVASTATIN CALCIUM 40MG TABLET PO SCH (21:00)
[2020-04-15] VITALS (7 sets, daily range): BP systolic 157–190; BP diastolic 89–100
[2020-04-15] MEDS: HYDRALAZINE 20MG/ML VIAL IV PRN (02:23)
[2020-04-15] MEDS: SODIUM CHLORIDE 0.9% 1,000 ML IV SCH (03:49)
[2020-04-15] MEDS: MULTIVITAMINS,THER W-MINERALS TABLET PO SCH (09:08)
[2020-04-15] MEDS: THIAMINE HCL 100MG TABLET PO SCH (09:08)
[2020-04-15] MEDS: FOLIC ACID 1MG TABLET PO SCH (09:09)
[2020-04-15] MEDS: ENOXAPARIN 30MG/0.3ML SYR SUBCUT SCH (09:12)
[2020-04-15] MEDS: AMLODIPINE 5MG TABLET PO SCH (09:12)
[2020-04-15] MEDS: LEVETIRACETAM 500MG PREMIX 100 ML IV SCH ×2 (09:30→21:00)
[2020-04-15] MEDS: ACETAMINOPHEN 325MG TABLET PO PRN (11:24)
== END 2020-04-15 21:34 | disposition home or self-care (01) | DRG 53 ==
LOC: ER 07:55 → UNDOADMIN 10:59 → 5WST 10:59 → MICUSO 10:59
PROVIDERS: ADMIT Internal Medicine; ATTEND Internal Medicine
PROC: 4A10X4Z Monitoring of Central Nervous Electrical Activity, External Approach (ICD-10-PCS; principal; 2020-04-14)
DX: G40.909 Epilepsy, unspecified, not intractable, without status epilepticus (principal); E87.2 Acidosis; G95.89 Other specified diseases of spinal cord; R32 Unspecified urinary incontinence; F14.10 Cocaine abuse, uncomplicated; F12.10 Cannabis abuse, uncomplicated; F17.200 Nicotine dependence, unspecified, uncomplicated; M48.04 Spinal stenosis, thoracic region; I10 Essential (primary) hypertension; M48.061 Spinal stenosis, lumbar region without neurogenic claudication; Z86.73 Personal history of transient ischemic attack (TIA), and cerebral infarction without residual deficits; Z91.19 Patient's noncompliance with other medical treatment and regimen; Z79.891 Long term (current) use of opiate analgesic; Z79.899 Other long term (current) drug therapy; Z91.14 Patient's other noncompliance with medication regimen; Z71.51 Drug abuse counseling and surveillance of drug abuser
CPT/HCPCS: 36415; 80048; 80053; 80156; 80165; 80184; 80185; 80305; 80320; 81003; 83605; 83721; 85025; 93970; 97162; 99291; J0360; J1650; J1953; J2060; J7030; G0480

== ENCOUNTER 2020-07-30 13:19 | Emergency (ER) | payer MEDICAID ==
[~2020-07-30] VITALS: Ht 180.3 cm; Wt 91.0 kg
[2020-07-30] MEDS ORDERED: LEVETIRACETAM 1000MG PREMIX 100 ML IV ONE (13:30)
[2020-07-30 15:37] LABS: BASOPHILS % 0.2 % (0.0-2.0); EOSINOPHILS % 0.1 % (0.0-5.0); HEMATOCRIT. 43.1 % (42.0-52.0); HEMOGLOBIN. 14.6 g/dL (14.0-18.0); LYMPHOCYTES % 8.5 % (20.0-50.0); MEAN CORPUSCULAR HEMOGLOBIN 31.1 pg (28.0-32.0); MEAN CORPUSCULAR VOLUME 91.5 fL (80.0-94.0); MEAN PLATELET VOLUME 9.3 fl (7.4-10.4); MONOCYTES % 4.8 % (2.0-8.0); NEUTROPHILS % 86.4 % (40.0-76.0); PLATELET 173 x1000/uL (130-400); RED BLOOD CELL COUNT 4.71 mill/uL (4.7-6.1); RED CELL DISTRIBUTION WIDTH 13.9 % (11.6-14.6)
[2020-07-30 15:50] LABS: CHLORIDE 105 mEq/L (98-107); ETHANOL BLOOD < 10 mg/dL
[2020-07-30 18:18] VITALS: BP 170/88
== END 2020-07-30 18:18 | disposition home or self-care (01) ==
LOC: ER 13:24
DX: R56.9 Unspecified convulsions (principal); Z86.73 Personal history of transient ischemic attack (TIA), and cerebral infarction without residual deficits
CPT/HCPCS: 36415; 80053; 80320; 82962; 85025; 96365; 99285; J1953; G0480